=== PATIENT | female | born 1940 | race Hispanic/Latino ===

== ENCOUNTER → 2017-10-20 | Outpatient (CLI) | payer OTHER ==
[~2017-10-20] MED LIST: AMLO5TAB2 PO; ASPI-1197 PO; ATOR20TA65 PO; CYAN100T PO; FERR236T3 PO; GLIP-220 PO; LABE300T PO; LISI1TAB9 PO; METF-527 PO; SITA100T12 PO; [UNRECOGNIZED DRUG - OTHER] PO
== END | disposition home or self-care (01) ==
LOC: RAH 10:27
PROVIDERS: ATTEND Internal Medicine Gastroenterology
DX: R10.9 Unspecified abdominal pain (principal); R14.0 Abdominal distension (gaseous); R11.2 Nausea with vomiting, unspecified
CPT/HCPCS: 78264; A9541

== ENCOUNTER 2017-10-27 08:27 | Day surgery (SDC) | payer OTHER ==
[~2017-10-27] VITALS: Ht 149.9 cm; Wt 75.0 kg
[~2017-10-27 08:27] MED LIST changes: -CYAN100T PO; -FERR236T3 PO; +SODIUM CHLORIDE 0.9% 1000ML 1,000 ML IV ONE; -[UNRECOGNIZED DRUG - OTHER] PO
[2017-10-27 08:48] VITALS: BP 194/88
[2017-10-27] MEDS ORDERED: CYAN100T PO (09:40)
[2017-10-27] MEDS ORDERED: FERR236T3 PO (09:40)
[2017-10-27] MEDS ORDERED: [UNRECOGNIZED DRUG - OTHER] PO (09:40)
[2017-10-27] MEDS ORDERED: PROPOFOL 10 MG/ML 20ML VIAL IV ONE ×2 (10:18)
[2017-10-27 10:35] VITALS: BP 143/47
== END 2017-10-27 11:12 | disposition home or self-care (01) ==
LOC: ENDO 08:27 → DAH 08:27 → ENDO 11:12
PROVIDERS: ATTEND Internal Medicine Gastroenterology
DX: D50.9 Iron deficiency anemia, unspecified (principal); K21.9 Gastro-esophageal reflux disease without esophagitis; G47.33 Obstructive sleep apnea (adult) (pediatric); E11.9 Type 2 diabetes mellitus without complications; I10 Essential (primary) hypertension; E78.5 Hyperlipidemia, unspecified; Z79.84 Long term (current) use of oral hypoglycemic drugs; Z79.899 Other long term (current) drug therapy; Z90.710 Acquired absence of both cervix and uterus
CPT/HCPCS: 45378; 82948 ×2; 93005; A4606; J2704 ×2; J7030

== ENCOUNTER → 2018-07-03 | Outpatient (CLI) | payer OTHER ==
[~2018-07-03] MED LIST changes: -AMLO5TAB2 PO; +AMLO5TAB7 PO; +CYAN100T PO; +FERR236T3 PO; -LABE300T PO; +LABE300T2 PO; -SODIUM CHLORIDE 0.9% 1000ML 1,000 ML IV ONE; +[UNRECOGNIZED DRUG - OTHER] PO
== END | disposition home or self-care (01) ==
LOC: RAH 10:34
PROVIDERS: ATTEND Internal Medicine
DX: M25.561 Pain in right knee (principal)
CPT/HCPCS: 73562

== ENCOUNTER 2018-07-22 03:43 | Emergency (ER) | payer OTHER ==
[2018-07-22] MEDS ORDERED: SODIUM CHLORIDE 0.9% 1000ML 1,000 ML IV ONE (04:00)
[2018-07-22 04:16] LABS: EOSINOPHILS % (AUTO) 1.9 % (0.0-8.0); LYMPHOCYTES % (AUTO) 16.6 % (21.0-51.0); MEAN CORPUSCULAR HEMOGLOBIN 28.9 pg (27.0-33.0); MEAN CORPUSCULAR HGB CONC 33.1 g/dL (32.0-36.0); MEAN CORPUSCULAR VOLUME 87.5 fL (79-99); MONOCYTES % (AUTO) 6.4 % (3.0-13.0); NEUTROPHILS % (AUTO) 74.1 % (40.0-77.0); PLATELET COUNT (AUTO) 314 K/uL (130-400); RED BLOOD CELL COUNT(AUTO) 3.89 MIL/uL (4.00-5.50); RED CELL DISTRIBUTION WIDTH 14.2 % (11.0-15.5); WHITE BLOOD COUNT (AUTO) 13.9 K/uL (4.8-10.8)
[2018-07-22 04:30] LABS: CREATININE 0.9 mg/dL (0.5-1.5); POTASSIUM 3.3 mmol/L (3.5-5.1)
[2018-07-22 04:36] LABS: ALBUMIN 3.3 g/dL (3.5-5.0); BILIRUBIN,TOTAL 0.3 mg/dL (0.2-1.0); TOTAL PROTEIN, SERUM 6.5 g/dL (6.0-8.3)
[2018-07-22 04:39] LABS: INR 0.89 (0.85-1.15); PARTIAL THROMBOPLASTIN TIME 24.7 SEC (26.3-35.5); PROTHROMBIN TIME 9.4 SEC (9.6-11.6)
[2018-07-22] MEDS ORDERED: POTASSIUM BICARB/CIT AC 25 MEQ TABLET.EFF ONE (05:00)
== END 2018-07-22 05:32 | disposition home or self-care (01) ==
LOC: EDH 03:43
DX: E11.649 Type 2 diabetes mellitus with hypoglycemia without coma (principal); E78.5 Hyperlipidemia, unspecified; I11.0 Hypertensive heart disease with heart failure; I50.9 Heart failure, unspecified; Z79.4 Long term (current) use of insulin
CPT/HCPCS: 36415; 80053; 82948 ×2; 83735; 84484; 85025; 85610; 85730; 93005; 96360; 99285; J7030

== ENCOUNTER → 2018-12-26 | Outpatient (CLI) | payer OTHER ==
[~2018-12-26] MED LIST changes: -AMLO5TAB7 PO; +AMLO5TAB9 PO; -CYAN100T PO; +CYAN100T3 PO; -GLIP-220 PO; +GLIP10TA19 PO
== END | disposition home or self-care (01) ==
LOC: RAH 11:17
PROVIDERS: ATTEND Internal Medicine
DX: M25.571 Pain in right ankle and joints of right foot (principal)
CPT/HCPCS: 73610; 73630

== ENCOUNTER → 2019-06-13 | Outpatient (CLI) | payer OTHER ==
[~2019-06-13] MED LIST changes: +LISI1TAB32 PO; -LISI1TAB9 PO
== END | disposition home or self-care (01) ==
LOC: RAH 13:22
PROVIDERS: ATTEND Internal Medicine
DX: E04.2 Nontoxic multinodular goiter (principal); R09.89 Other specified symptoms and signs involving the circulatory and respiratory systems
CPT/HCPCS: 93880

== ENCOUNTER → 2019-08-30 | Outpatient (CLI) | payer OTHER | END | disposition home or self-care (01) | LOC: SHCH 13:49 | PROVIDERS: ATTEND Internal Medicine Cardiovascular Disease | DX: I87.2 Venous insufficiency (chronic) (peripheral) (principal) | CPT/HCPCS: 93970 ==

== ENCOUNTER 2019-09-08 05:10 | Observation (INO) | payer OTHER ==
[~2019-09-08] VITALS: Ht 152.4 cm; Wt 85.7 kg
[2019-09-08 05:39] LABS: BASOPHILS % (AUTO) 0.6 % (0.0-5.0); EOSINOPHILS % (AUTO) 3.2 % (0.0-8.0); HEMATOCRIT 31.2 % (36-48); LYMPHOCYTES % (AUTO) 20.2 % (21.0-51.0); MEAN CORPUSCULAR HEMOGLOBIN 27.1 pg (27.0-33.0); MEAN CORPUSCULAR HGB CONC 31.1 g/dL (32.0-36.0); MEAN CORPUSCULAR VOLUME 87.2 fL (79-99); MONOCYTES % (AUTO) 9.1 % (3.0-13.0); NEUTROPHILS % (AUTO) 66.4 % (40.0-77.0); PLATELET COUNT (AUTO) 276 K/uL (130-400); RED BLOOD CELL COUNT(AUTO) 3.58 MIL/uL (4.00-5.50); RED CELL DISTRIBUTION WIDTH 14.6 % (11.0-15.5); WHITE BLOOD COUNT (AUTO) 9.5 K/uL (4.8-10.8)
[2019-09-08 05:48] LABS: CREATININE 1.3 mg/dL (0.5-1.5); POTASSIUM 3.2 mmol/L (3.5-5.1)
[2019-09-08 05:52] LABS: ALBUMIN 3.4 g/dL (3.5-5.0); BILIRUBIN,TOTAL 0.3 mg/dL (0.2-1.0); TOTAL PROTEIN, SERUM 7.2 g/dL (6.0-8.3)
[2019-09-08 06:00] LABS: APPEARANCE,URINE Clear (CLEAR); BILIRUBIN,URINE Negative (NEGATIVE); COLOR,URINE Yellow (YELLOW); GLUCOSE, URINE (UA) Negative (NEGATIVE); KETONES,URINE Negative (NEGATIVE); LEUKOCYTE ESTERASE ,URINE Trace (NEGATIVE); NITRATE,URINE Negative (NEGATIVE); OCCULT BLOOD,URINE Negative (NEGATIVE); PH,URINE 6.5 (5.0-8.0); PROTEIN,URINE 300 mg/dL (NEGATIVE); UROBILINOGEN,URINE 0.2 mg/dL (0.2-1.0)
[2019-09-08 06:04] LABS: BACTERIA,URINE None Seen /HPF (None Seen); MUCUS,URINE None Seen LPF (None Seen); RBC,URINE None Seen /HPF (0-1); SQUAMOUS EPITHELIAL CELL,UR None Seen /HPF (0-2); WBC,URINE 0-1 /HPF (0-1)
[2019-09-08] MEDS ORDERED: DEXTROSE 5 % AND 0.9 % NACL 1,000 ML IV SCH (07:30)
[2019-09-08] MEDS ORDERED: DIPHENHYDRAMINE HCL 25 MG CAPSULE PO PRN (07:30)
[2019-09-08] MEDS ORDERED: GUAIFENESIN-DM 200/20 MG 10 ML PO PRN (07:30)
[2019-09-08] MEDS ORDERED: ACETAMINOPHEN 325 MG TAB PO PRN ×2 (07:30)
[2019-09-08] MEDS ORDERED: DiphenhydrAMINE HCL 50 MG/ML VIAL IV PRN (07:30)
[2019-09-08] MEDS ORDERED: LACTULOSE 20 GM/30 ML UDCUP PO PRN (07:30)
[2019-09-08] MEDS ORDERED: MAG HYDROX/AL HYDROX/SIMETH ES 30 ML SUSP UDCUP PO PRN (07:30)
[2019-09-08] MEDS ORDERED: ONDANSETRON HCL 4 MG/2 ML VIAL IV PRN (07:30)
[2019-09-08] MEDS ORDERED: NITROGLYCERIN 0.4 MG SL TAB SL PRN (07:30)
[2019-09-08 07:35] LABS: HEMOGLOBIN A1C 9.5 % (4.0-6.0)
[2019-09-08 07:47] LABS: INR 0.89 (0.85-1.15); PARTIAL THROMBOPLASTIN TIME 27.3 SEC (26.3-35.5); PROTHROMBIN TIME 9.4 SEC (9.6-11.6)
[2019-09-08] MEDS ORDERED: SODIUM CHLORIDE 0.9% 1000ML 1,000 ML IV SCH (08:15)
[2019-09-08] MEDS ORDERED: POTASSIUM CHLORIDE 20 MEQ ERTAB PO ONE (08:16)
[2019-09-08] MEDS ORDERED: HEPARIN SODIUM 5000UNIT/ML 1ML VIAL ONE (08:16)
[2019-09-08] MEDS ORDERED: FAMOTIDINE/PF 20 MG/2 ML VIAL IV ONE (08:17)
[2019-09-08] MEDS ORDERED: SODIUM CHLORIDE 0.9% 1000ML 1,000 ML IV ONE (08:17)
[2019-09-08] MEDS: POTASSIUM CHLORIDE 20 MEQ ERTAB PO SCH ×2 (09:00→21:54)
[2019-09-08] MEDS ORDERED: FAMOTIDINE 20MG TAB 20 MG TAB PO SCH (09:00)
[2019-09-08] MEDS: HEPARIN SODIUM 5000UNIT/ML 1ML VIAL SQ SCH ×2 (09:00→22:04)
[2019-09-08 09:50] VITALS: BP 148/73
[2019-09-08] MEDS ORDERED: BRIM5DRO4 OP (10:53)
[2019-09-08] MEDS ORDERED: LATA2.5D2 OP (10:53)
[2019-09-08] MEDS ORDERED: LISI1TAB32 PO (10:53)
[2019-09-08] MEDS ORDERED: LABE300T2 PO (10:53)
[2019-09-08] MEDS ORDERED: ATOR40TA69 PO (10:53)
[2019-09-08] MEDS ORDERED: AMLO5TAB9 PO (10:53)
[2019-09-08] MEDS ORDERED: PIOG15TA66 PO (10:53)
[2019-09-08] MEDS ORDERED: AMLO2.5T4 PO (10:53)
[2019-09-08] MEDS ORDERED: DULA1.5P SQ (15:23)
[2019-09-08] MEDS ORDERED: INSLAN SQ (15:23)
[2019-09-08] MEDS ORDERED: INSU100I15 SQ (15:23)
[2019-09-08 16:04] VITALS: BP 162/59
[2019-09-08] MEDS: INSULIN HUMULIN R 100 UNIT/ML 3ML SQ SCH ×2 (17:24→22:05)
[2019-09-08] MEDS: SODIUM CHLORIDE 0.9% 1000ML 1,000 ML IV SCH (19:00)
--- NOTE | 2019-09-08 19:35 | NUR ---
PM Assessment Received pt with family at the bedside, NS at 50cc/hr infusing well, routine assessment done, plan of care discuss made aware that we will continue to monitor pt's blood sugar Q 2 hours as order but reported only to cover AC/HS reading. Pt also made aware at this time all her blood sugars medication is on hold. Pt currently denies discomfort.
[2019-09-08 20:00] VITALS: BP 160/74
[2019-09-08] MEDS ORDERED: ATORVASTATIN CALCIUM 40 MG TABLET PO SCH (21:00)
[2019-09-08] MEDS: LABETALOL HCL 100 MG TABLET PO SCH (21:55)
[2019-09-09] VITALS: BP 139/62
[2019-09-09 04:00] VITALS: BP 145/64
[2019-09-09 06:21] LABS: BASOPHILS % (AUTO) 0.6 % (0.0-5.0); EOSINOPHILS % (AUTO) 1.9 % (0.0-8.0); HEMATOCRIT 31.6 % (36-48); LYMPHOCYTES % (AUTO) 29.3 % (21.0-51.0); MEAN CORPUSCULAR HEMOGLOBIN 26.9 pg (27.0-33.0); MEAN CORPUSCULAR HGB CONC 30.4 g/dL (32.0-36.0); MEAN CORPUSCULAR VOLUME 88.5 fL (79-99); PLATELET COUNT (AUTO) 287 K/uL (130-400); RED BLOOD CELL COUNT(AUTO) 3.57 MIL/uL (4.00-5.50); WHITE BLOOD COUNT (AUTO) 8.5 K/uL (4.8-10.8)
[2019-09-09] MEDS: INSULIN HUMULIN R 100 UNIT/ML 3ML SQ SCH (06:34)
[2019-09-09] MEDS: SODIUM CHLORIDE 0.9% 1000ML 1,000 ML IV SCH (06:42)
[2019-09-09 06:49] LABS: ALBUMIN 3.1 g/dL (3.5-5.0); BILIRUBIN,TOTAL 0.4 mg/dL (0.2-1.0); CREATININE 1.2 mg/dL (0.5-1.5); TOTAL PROTEIN, SERUM 6.7 g/dL (6.0-8.3)
[2019-09-09 08:13] VITALS: BP 163/73
[2019-09-09] MEDS: LABETALOL HCL 100 MG TABLET PO SCH (08:58)
[2019-09-09] MEDS: POTASSIUM CHLORIDE 20 MEQ ERTAB PO SCH (08:59)
[2019-09-09] MEDS ORDERED: BRIMONIDINE TARTRATE 0.2% 5 ML BOTTLE OP SCH (09:00)
[2019-09-09] MEDS ORDERED: LISINOPRIL 10 MG TABLET PO SCH (09:00)
[2019-09-09] MEDS ORDERED: PIOGLITAZONE HCL 15 MG TAB PO SCH (09:00)
[2019-09-09] MEDS ORDERED: AMLODIPINE BESYLATE 5 MG TAB PO SCH (09:00)
[2019-09-09] MEDS ORDERED: FAMOTIDINE 20MG TAB 20 MG TAB PO SCH (09:00)
[2019-09-09] MEDS ORDERED: AMLODIPINE BESYLATE 2.5 MG TAB PO SCH (09:00)
[2019-09-09] MEDS ORDERED: HYDROCHLOROTHIAZIDE 25 MG TABLET PO SCH (09:00)
[2019-09-09] MEDS ORDERED: LATANOPROST 2.5 ML DROPS OP SCH (09:00)
[2019-09-09] MEDS: HEPARIN SODIUM 5000UNIT/ML 1ML VIAL SQ SCH (09:03)
[2019-09-09] MEDS ORDERED: METF500S7 PO (10:22)
[2019-09-09] MEDS ORDERED: PIOG15TA66 PO (10:22)
[2019-09-09] MEDS ORDERED: METF500T PO (18:10)
== END 2019-09-09 11:30 | disposition home or self-care (01) ==
LOC: EDH 05:10 → EDHIP 07:16 → INTOOBSV 07:16 → 3BH 09:52
PROVIDERS: ADMIT Family Medicine; ATTEND Family Medicine
DX: E11.649 Type 2 diabetes mellitus with hypoglycemia without coma (principal); T38.3X5A Adverse effect of insulin and oral hypoglycemic [antidiabetic] drugs, initial encounter; I11.0 Hypertensive heart disease with heart failure; E11.65 Type 2 diabetes mellitus with hyperglycemia; I50.9 Heart failure, unspecified; E78.5 Hyperlipidemia, unspecified; J44.9 Chronic obstructive pulmonary disease, unspecified; E87.6 Hypokalemia; Z79.4 Long term (current) use of insulin
CPT/HCPCS: 36415 ×2; 80053 ×2; 81001; 82948 ×11; 83036; 84443; 84484; 85025 ×2; 85610; 85730; 93005; 96360; 96361; 96372 ×2; 99284; G0378 ×28; J1644 ×3; J1815 ×2; J3490; J7030 ×2; 96365

== ENCOUNTER → 2019-10-18 | Outpatient (CLI) | payer OTHER ==
[~2019-10-18] MED LIST changes: +AMLO2.5T4 PO; -ASPI-1197 PO; -ATOR20TA65 PO; +ATOR40TA69 PO; +BRIM5DRO4 OP; -CYAN100T3 PO; +DULA1.5P SQ; -FERR236T3 PO; -GLIP10TA19 PO; +LATA2.5D2 OP; -METF-527 PO; +METF500S7 PO; +METF500T PO; +PIOG15TA66 PO; -SITA100T12 PO; -[UNRECOGNIZED DRUG - OTHER] PO
== END | disposition home or self-care (01) ==
LOC: RAH 11:52
PROVIDERS: ATTEND Internal Medicine
DX: S82.831A Other fracture of upper and lower end of right fibula, initial encounter for closed fracture (principal); M20.11 Hallux valgus (acquired), right foot; X58.XXXA Exposure to other specified factors, initial encounter; Y93.89 Activity, other specified; Y92.89 Other specified places as the place of occurrence of the external cause; Y99.8 Other external cause status
CPT/HCPCS: 73590; 73610; 73630

== ENCOUNTER → 2020-05-02 | Outpatient (CLI) | payer OTHER | END | disposition home or self-care (01) | LOC: RAH 09:51 | PROVIDERS: ATTEND Internal Medicine | DX: I08.0 Rheumatic disorders of both mitral and aortic valves (principal); I11.0 Hypertensive heart disease with heart failure; I50.9 Heart failure, unspecified; I77.9 Disorder of arteries and arterioles, unspecified; E66.9 Obesity, unspecified; E78.5 Hyperlipidemia, unspecified; E11.9 Type 2 diabetes mellitus without complications | CPT/HCPCS: 93306; 93356 ==

== ENCOUNTER → 2020-10-16 | Outpatient (CLI) | payer OTHER ==
[~2020-10-16] MED LIST changes: +AMLO-257 PO; -AMLO5TAB9 PO; +LATA2.5D14 OP; -LATA2.5D2 OP
== END | disposition home or self-care (01) ==
LOC: SHCH 08:53
PROVIDERS: ATTEND Internal Medicine Cardiovascular Disease
DX: K21.9 Gastro-esophageal reflux disease without esophagitis (principal); I87.2 Venous insufficiency (chronic) (peripheral); R07.9 Chest pain, unspecified; R06.09 Other forms of dyspnea; I20.9 Angina pectoris, unspecified; R60.9 Edema, unspecified
CPT/HCPCS: 93970

== ENCOUNTER 2020-10-17 18:44 | Inpatient (IN) | payer OTHER ==
[~2020-10-17] VITALS: Ht 160 cm; Wt 80.4 kg
[~2020-10-17 18:44] MED LIST changes: -LISI1TAB32 PO; +LISI1TAB49 PO
[2020-10-17] MEDS ORDERED: HYDRALAZINE 20MG/ML VIAL ONE (19:15)
[2020-10-17 19:18] LABS: BASOPHILS % (AUTO) 0.5 % (0.0-5.0); EOSINOPHILS % (AUTO) 0.4 % (0.0-8.0); HEMATOCRIT 29.8 % (36-48); LYMPHOCYTES % (AUTO) 10.2 % (21.0-51.0); MEAN CORPUSCULAR HEMOGLOBIN 26.7 pg (27.0-33.0); MEAN CORPUSCULAR HGB CONC 30.9 g/dL (32.0-36.0); MEAN CORPUSCULAR VOLUME 86.6 fL (79-99); MONOCYTES % (AUTO) 6.1 % (3.0-13.0); NEUTROPHILS % (AUTO) 82.2 % (40.0-77.0); PLATELET COUNT (AUTO) 255 K/uL (130-400); RED BLOOD CELL COUNT(AUTO) 3.44 MIL/uL (4.00-5.50); RED CELL DISTRIBUTION WIDTH 15.4 % (11.0-15.5); WHITE BLOOD COUNT (AUTO) 10.9 K/uL (4.8-10.8)
[2020-10-17] MEDS ORDERED: DEXAMETHASONE SOD PHOSPHATE 10MG/ML 1ML VIAL ONE (19:26)
[2020-10-17] MEDS ORDERED: CEFTRIAXONE 1G VIAL ONE (19:26)
[2020-10-17 19:29] LABS: CREATININE 1.5 mg/dL (0.5-1.5); POTASSIUM 3.6 mmol/L (3.5-5.1)
[2020-10-17 19:30] LABS: ABG BASE EXCESS 2.6 mmol/L (-2.0-3.0); ABG HCO3 28.1 mmol/L (21.0-28.0); ABG OXYGEN SATURATION 98.8 % (95.0-99.0); ABG PCO2 47 mmHg (32-45)
[2020-10-17 19:31] LABS: PROTHROMBIN TIME 10.9 SEC (9.6-11.6)
[2020-10-17 19:33] LABS: PARTIAL THROMBOPLASTIN TIME 23.6 SEC (26.3-35.5)
[2020-10-17 19:34] LABS: BILIRUBIN,TOTAL 0.4 mg/dL (0.2-1.0)
[2020-10-17] MEDS ORDERED: MAG/ALUM/SIMETH 30 ML UDCUP PO PRN (23:00)
[2020-10-17] MEDS ORDERED: GUAIFENESIN-DM 200/20 MG 10 ML PO PRN (23:00)
[2020-10-17] MEDS: AZITHROMYCIN 500MG+NS 250ML 250 ML IV SCH (23:00)
[2020-10-17] MEDS ORDERED: ACETAMINOPHEN 325 MG TAB PO PRN ×2 (23:00)
[2020-10-17] MEDS ORDERED: DiphenhydrAMINE HCL 50 MG/ML VIAL IV PRN (23:00)
[2020-10-17] MEDS ORDERED: ONDANSETRON 4MG INJ IV PRN (23:00)
[2020-10-17] MEDS ORDERED: LACTATED RINGERS 1000ML 1,000 ML IV SCH (23:00)
[2020-10-17] MEDS ORDERED: DIPHENHYDRAMINE HCL 25 MG CAPSULE PO PRN (23:00)
[2020-10-17] MEDS ORDERED: LACTULOSE 20 GM/30 ML UDCUP PO PRN (23:00)
[2020-10-17] MEDS ORDERED: ALBUTEROL 0.083% 2.5 MG/3 ML INH IH PRN (23:00)
[2020-10-17] MEDS ORDERED: NITROGLYCERIN 0.4 MG SL TAB SL PRN (23:00)
[2020-10-17 23:51] LABS: CRP QUANTITATIVE 50.8 mg/L (0.00-9.0)
[2020-10-18] MEDS ORDERED: AZITHROMYCIN 500MG+NS 250ML 250 ML IV ONE (00:01)
[2020-10-18] MEDS ORDERED: LACTATED RINGERS 1000ML 1,000 ML IV ONE (00:02)
[2020-10-18 00:48] LABS: APPEARANCE,URINE Clear (CLEAR); BILIRUBIN,URINE Negative (NEGATIVE); COLOR,URINE Yellow (YELLOW); GLUCOSE, URINE (UA) 500 mg/dL (NEGATIVE); KETONES,URINE Trace mg/dL (NEGATIVE); LEUKOCYTE ESTERASE ,URINE Negative (NEGATIVE); NITRATE,URINE Negative (NEGATIVE); OCCULT BLOOD,URINE Negative (NEGATIVE); PH,URINE 6.5 (5.0-8.0); PROTEIN,URINE >=1000 mg/dL (NEGATIVE); UROBILINOGEN,URINE 0.2 mg/dL (0.2-1.0)
[2020-10-18 01:06] LABS: BACTERIA,URINE None Seen /HPF (None Seen); MUCUS,URINE Moderate LPF (None Seen); RBC,URINE None Seen /HPF (0-1); SQUAMOUS EPITHELIAL CELL,UR Rare /HPF (0-2)
[2020-10-18] MEDS: FUROSEMIDE 20MG VIAL IV SCH ×2 (03:00→15:00)
[2020-10-18] MEDS ORDERED: FUROSEMIDE 20MG VIAL ONE ×2 (03:38→18:24)
[2020-10-18 06:30] LABS: BASOPHILS % (AUTO) 0.1 % (0.0-5.0); HEMATOCRIT 30.4 % (36-48); LYMPHOCYTES % (AUTO) 8.3 % (21.0-51.0); MEAN CORPUSCULAR HEMOGLOBIN 26.3 pg (27.0-33.0); MEAN CORPUSCULAR HGB CONC 30.6 g/dL (32.0-36.0); MEAN CORPUSCULAR VOLUME 85.9 fL (79-99); MONOCYTES % (AUTO) 1.2 % (3.0-13.0); NEUTROPHILS % (AUTO) 89.8 % (40.0-77.0); PLATELET COUNT (AUTO) 277 K/uL (130-400); RED BLOOD CELL COUNT(AUTO) 3.54 MIL/uL (4.00-5.50); RED CELL DISTRIBUTION WIDTH 15.5 % (11.0-15.5); WHITE BLOOD COUNT (AUTO) 8.9 K/uL (4.8-10.8)
[2020-10-18 06:46] LABS: BILIRUBIN,TOTAL 0.4 mg/dL (0.2-1.0); CREATININE 1.6 mg/dL (0.5-1.5); CRP QUANTITATIVE 70.1 mg/L (0.00-9.0); POTASSIUM 4.1 mmol/L (3.5-5.1); TOTAL PROTEIN, SERUM 7.2 g/dL (6.0-8.3)
[2020-10-18] MEDS ORDERED: CLOPIDOGREL 75MG TAB ONE (07:31)
[2020-10-18] MEDS ORDERED: LABETALOL HCL 100 MG TABLET ONE (07:31)
[2020-10-18] MEDS ORDERED: LABETALOL HCL 200 MG TABLET ONE (07:31)
[2020-10-18] MEDS ORDERED: ENOXAPARIN SODIUM 30 MG/0.3 ML SQ ONE (07:32)
[2020-10-18] MEDS ORDERED: FAMOTIDINE 20MG VIAL IV ONE (07:32)
[2020-10-18] MEDS: ENOXAPARIN SODIUM 30 MG/0.3 ML SQ SCH (09:00)
[2020-10-18] MEDS ORDERED: FAMOTIDINE 20MG VIAL IV SCH (09:00)
[2020-10-18] MEDS: LABETALOL HCL 100 MG TABLET PO SCH ×2 (09:00→21:00)
[2020-10-18] MEDS: CLOPIDOGREL 75MG TAB PO SCH (09:00)
[2020-10-18] MEDS: LISINOPRIL 10 MG PO SCH (09:00)
[2020-10-18] MEDS: HYDROCHLOROTHIAZIDE 12.5 MG PO SCH (09:00)
[2020-10-18] MEDS ORDERED: LABETALOL 20MG SYG IV SCH (15:30)
[2020-10-18] MEDS ORDERED: LABETALOL 20MG SYG IV ONE (16:22)
[2020-10-18] MEDS: INSULIN R PO SS1 SQ SCH ×2 (16:30→21:00)
[2020-10-18] MEDS ORDERED: INSULIN HUMULIN R 100 UNIT/ML 3ML ONE ×2 (18:24→21:00)
[2020-10-18] MEDS: CEFTRIAXONE 1G VIAL IVP SCH (21:00)
[2020-10-18] MEDS: AZITHROMYCIN 500MG+NS 250ML 250 ML IV SCH (23:00)
[2020-10-19] MEDS ORDERED: LABETALOL HCL 100 MG TABLET ONE (01:27)
[2020-10-19] MEDS: FUROSEMIDE 20MG VIAL IV SCH ×2 (03:00→15:00)
[2020-10-19 04:54] LABS: BASOPHILS % (AUTO) 0.5 % (0.0-5.0); EOSINOPHILS % (AUTO) 1.6 % (0.0-8.0); LYMPHOCYTES % (AUTO) 20.9 % (21.0-51.0); MEAN CORPUSCULAR HEMOGLOBIN 26.8 pg (27.0-33.0); MEAN CORPUSCULAR HGB CONC 31.2 g/dL (32.0-36.0); MEAN CORPUSCULAR VOLUME 85.9 fL (79-99); MONOCYTES % (AUTO) 11.2 % (3.0-13.0); NEUTROPHILS % (AUTO) 65.4 % (40.0-77.0); PLATELET COUNT (AUTO) 253 K/uL (130-400); RED BLOOD CELL COUNT(AUTO) 2.91 MIL/uL (4.00-5.50); RED CELL DISTRIBUTION WIDTH 15.7 % (11.0-15.5); WHITE BLOOD COUNT (AUTO) 8.5 K/uL (4.8-10.8)
[2020-10-19 05:12] LABS: ALBUMIN 2.6 g/dL (3.5-5.0); BILIRUBIN,TOTAL 0.2 mg/dL (0.2-1.0); CRP QUANTITATIVE 57.4 mg/L (0.00-9.0); POTASSIUM 3.9 mmol/L (3.5-5.1); TOTAL PROTEIN, SERUM 6.1 g/dL (6.0-8.3)
[2020-10-19 05:20] LABS: B-TYPE NATRIURETIC PEPTIDE 683 pg/mL (0-100)
[2020-10-19] MEDS: INSULIN R PO SS1 SQ SCH ×4 (07:30→21:00)
[2020-10-19] MEDS ORDERED: CLOPIDOGREL 75MG TAB ONE (08:43)
[2020-10-19] MEDS ORDERED: ENOXAPARIN SODIUM 30 MG/0.3 ML SQ ONE (08:43)
[2020-10-19] MEDS ORDERED: LISINOPRIL 20 MG TABLET ONE (08:44)
[2020-10-19] MEDS ORDERED: HYDROCHLOROTHIAZIDE 25 MG TABLET ONE (08:44)
[2020-10-19] MEDS ORDERED: FAMOTIDINE 20MG VIAL IV ONE ×2 (08:44→20:45)
[2020-10-19] MEDS ORDERED: INSULIN HUMULIN R 100 UNIT/ML 3ML ONE ×3 (08:45→20:45)
[2020-10-19] MEDS: LISINOPRIL 10 MG PO SCH (09:00)
[2020-10-19] MEDS: ENOXAPARIN SODIUM 30 MG/0.3 ML SQ SCH (09:00)
[2020-10-19] MEDS: LABETALOL HCL 100 MG TABLET PO SCH ×2 (09:00→21:00)
[2020-10-19] MEDS: HYDROCHLOROTHIAZIDE 12.5 MG PO SCH (09:00)
[2020-10-19] MEDS: CLOPIDOGREL 75MG TAB PO SCH (09:00)
[2020-10-19 10:43] LABS: % IRON SATURATION 11.5 % (22-44)
[2020-10-19 14:01] LABS: BASOPHILS % (AUTO) 0.5 % (0.0-5.0); EOSINOPHILS % (AUTO) 3.7 % (0.0-8.0); HEMATOCRIT 26.2 % (36-48); LYMPHOCYTES % (AUTO) 21.8 % (21.0-51.0); MEAN CORPUSCULAR HEMOGLOBIN 27.2 pg (27.0-33.0); MEAN CORPUSCULAR HGB CONC 30.9 g/dL (32.0-36.0); MEAN CORPUSCULAR VOLUME 87.9 fL (79-99); MONOCYTES % (AUTO) 7.9 % (3.0-13.0); NEUTROPHILS % (AUTO) 65.9 % (40.0-77.0); PLATELET COUNT (AUTO) 291 K/uL (130-400); RED BLOOD CELL COUNT(AUTO) 2.98 MIL/uL (4.00-5.50); RED CELL DISTRIBUTION WIDTH 15.9 % (11.0-15.5)
[2020-10-19] MEDS ORDERED: FUROSEMIDE 20MG VIAL ONE (15:34)
[2020-10-19] MEDS: AMLODIPINE 5 MG TAB PO SCH (16:45)
[2020-10-19] MEDS ORDERED: AMLODIPINE 5 MG TAB ONE (17:03)
[2020-10-19 17:27] LABS: PROTEIN,URINE RANDOM 683.8 mg/dL (0-11.9)
[2020-10-19] MEDS ORDERED: AZITHROMYCIN 500MG+NS 250ML 250 ML IV ONE (20:44)
[2020-10-19] MEDS ORDERED: CEFTRIAXONE 1G VIAL ONE (20:44)
[2020-10-19] MEDS ORDERED: 0.9%NACL 50ML 50 ML IV ONE (20:46)
[2020-10-19] MEDS: CEFTRIAXONE 1G VIAL IVP SCH (21:00)
[2020-10-19] MEDS: AZITHROMYCIN 500MG+NS 250ML 250 ML IV SCH (23:00)
[2020-10-20] MEDS ORDERED: FUROSEMIDE 20MG VIAL ONE (02:53)
[2020-10-20] MEDS: FUROSEMIDE 20MG VIAL IV SCH ×2 (03:00→16:12)
[2020-10-20 03:20] LABS: BASOPHILS % (AUTO) 0.5 % (0.0-5.0); HEMATOCRIT 26.2 % (36-48); LYMPHOCYTES % (AUTO) 27.3 % (21.0-51.0); MEAN CORPUSCULAR HEMOGLOBIN 27.1 pg (27.0-33.0); MEAN CORPUSCULAR HGB CONC 30.9 g/dL (32.0-36.0); MEAN CORPUSCULAR VOLUME 87.6 fL (79-99); MONOCYTES % (AUTO) 10.5 % (3.0-13.0); NEUTROPHILS % (AUTO) 55.6 % (40.0-77.0); PLATELET COUNT (AUTO) 295 K/uL (130-400); RED BLOOD CELL COUNT(AUTO) 2.99 MIL/uL (4.00-5.50); RED CELL DISTRIBUTION WIDTH 15.7 % (11.0-15.5); WHITE BLOOD COUNT (AUTO) 7.5 K/uL (4.8-10.8)
[2020-10-20 03:39] LABS: ALBUMIN 2.7 g/dL (3.5-5.0); BILIRUBIN,TOTAL 0.2 mg/dL (0.2-1.0); CREATININE 1.8 mg/dL (0.5-1.5); CRP QUANTITATIVE 39.9 mg/L (0.00-9.0); POTASSIUM 3.6 mmol/L (3.5-5.1); TOTAL PROTEIN, SERUM 6.2 g/dL (6.0-8.3)
[2020-10-20] MEDS: INSULIN R PO SS1 SQ SCH ×4 (07:30→21:00)
[2020-10-20] MEDS ORDERED: CLOPIDOGREL 75MG TAB ONE (08:46)
[2020-10-20] MEDS ORDERED: LABETALOL HCL 100 MG TABLET ONE (08:46)
[2020-10-20] MEDS ORDERED: ASPIRIN 81MG CHEW TAB ONE (08:46)
[2020-10-20] MEDS ORDERED: AMLODIPINE 5 MG TAB ONE (08:47)
[2020-10-20] MEDS ORDERED: ENOXAPARIN SODIUM 30 MG/0.3 ML SQ ONE (08:47)
[2020-10-20] MEDS: LISINOPRIL 10 MG PO SCH (09:00)
[2020-10-20] MEDS: HYDROCHLOROTHIAZIDE 12.5 MG PO SCH (09:00)
[2020-10-20] MEDS: LABETALOL HCL 100 MG TABLET PO SCH ×2 (09:00→22:46)
[2020-10-20] MEDS: AMLODIPINE 5 MG TAB PO SCH (09:00)
[2020-10-20] MEDS: ASPIRIN 81MG CHEW TAB PO SCH (09:00)
[2020-10-20] MEDS: ENOXAPARIN SODIUM 30 MG/0.3 ML SQ SCH (09:00)
[2020-10-20 10:15] VITALS: BP 195/72
[2020-10-20] MEDS ORDERED: INSULIN GLARGINE 100 UNITS/ML 10 ML VIAL SQ SCH (11:45)
[2020-10-20] MEDS ORDERED: CLOP75TA32 PO (14:28)
[2020-10-20] MEDS ORDERED: INSU100I15 SQ (14:28)
[2020-10-20] MEDS ORDERED: INSU100V37 SQ (14:28)
[2020-10-20 16:00] VITALS: BP 164/78
[2020-10-20 19:10] VITALS: BP 163/65
[2020-10-20] MEDS: CEFTRIAXONE 1G VIAL IVP SCH (22:45)
[2020-10-20] MEDS: ACETYLCYSTEINE 600 MG CAPSULE PO SCH (22:46)
[2020-10-20] MEDS: AZITHROMYCIN 500MG+NS 250ML 250 ML IV SCH (22:47)
[2020-10-20 23:55] VITALS: BP 146/58
[2020-10-21] VITALS (12 sets, daily range): BP systolic 159–208; BP diastolic 54–88
[2020-10-21] MEDS: FUROSEMIDE 20MG VIAL IV SCH ×2 (03:36→15:10)
[2020-10-21 05:43] LABS: HEMATOCRIT 28.9 % (36-48); MEAN CORPUSCULAR HEMOGLOBIN 26.5 pg (27.0-33.0); MEAN CORPUSCULAR HGB CONC 30.4 g/dL (32.0-36.0); RED BLOOD CELL COUNT(AUTO) 3.32 MIL/uL (4.00-5.50); RED CELL DISTRIBUTION WIDTH 15.1 % (11.0-15.5); WHITE BLOOD COUNT (AUTO) 7.6 K/uL (4.8-10.8)
[2020-10-21 05:59] LABS: ALBUMIN 2.8 g/dL (3.5-5.0); BILIRUBIN,TOTAL 0.3 mg/dL (0.2-1.0); CREATININE 1.6 mg/dL (0.5-1.5); MAGNESIUM 1.9 mg/dL (1.80-2.40); TOTAL PROTEIN, SERUM 6.5 g/dL (6.0-8.3)
[2020-10-21 06:01] LABS: % IRON SATURATION 8.9 % (22-44)
[2020-10-21] MEDS ORDERED: LIDOCAINE HCL-MPF 1% 2ML VIAL ONE (06:38)
[2020-10-21] MEDS ORDERED: POTASSIUM CHLORIDE 20 MEQ/100 ML BAG IV SCH (06:45)
[2020-10-21] MEDS ORDERED: LIDOCAINE HCL-MPF 1% 2ML VIAL IV SCH (06:45)
[2020-10-21] MEDS ORDERED: IOHEXOL-350 50ML VIAL IV ONE (07:16)
[2020-10-21] MEDS ORDERED: MIDAZOLAM HCL 1 MG/ML 2ML VIAL ONE (07:16)
[2020-10-21] MEDS ORDERED: BIVALIRUDIN 250 MG/VIAL IV ONE (07:16)
[2020-10-21] MEDS ORDERED: IOHEXOL 350 MG/ML 100ML INFUS..BTL IV ONE (07:16)
[2020-10-21] MEDS ORDERED: FENTANYL CITRATE PF 50 MCG/1 ML 2ML VIAL ONE (07:17)
[2020-10-21] MEDS ORDERED: LIDOCAINE HCL 400MG/20ML VIAL ONE (07:17)
[2020-10-21] MEDS: INSULIN R PO SS1 SQ SCH ×4 (07:30→22:06)
[2020-10-21] MEDS ORDERED: NITROGLYCERIN 2 MG VIAL IV ONE (08:14)
[2020-10-21] MEDS: ENOXAPARIN SODIUM 30 MG/0.3 ML SQ SCH (09:00)
[2020-10-21] MEDS: ASPIRIN 81MG CHEW TAB PO SCH (09:00)
[2020-10-21] MEDS ORDERED: LABETALOL 20MG VIAL IV ONE (09:35)
[2020-10-21] MEDS ORDERED: 0.9%NACL 1000ML 1,000 ML IV SCH (10:00)
[2020-10-21] MEDS ORDERED: NITROGLYCERIN 0.4 MG SL TAB SL PRN (10:00)
[2020-10-21] MEDS ORDERED: METOPROLOL TARTRATE 1 MG/ML 5ML VIAL IV PRN (10:00)
[2020-10-21] MEDS ORDERED: ASPIRIN 81MG CHEW TAB ONE (10:03)
[2020-10-21] MEDS ORDERED: TICAGRELOR 90 MG TABLET ONE (10:03)
[2020-10-21] MEDS: AMLODIPINE 5 MG TAB PO SCH (15:09)
[2020-10-21] MEDS: LABETALOL HCL 100 MG TABLET PO SCH ×2 (15:09→22:03)
[2020-10-21] MEDS: Vitamin B Complex/Vit C/Folic Acid PO SCH (15:09)
[2020-10-21] MEDS: LISINOPRIL 10 MG PO SCH (15:11)
[2020-10-21] MEDS: HYDROCHLOROTHIAZIDE 12.5 MG PO SCH (15:11)
[2020-10-21] MEDS ORDERED: POTASSIUM CHLORIDE 10% ELIXIR 20 MEQ/15 ML UDCUP PO SCH (16:45)
[2020-10-21] MEDS ORDERED: ATORVASTATIN 40 MG TABLET PO SCH (21:00)
[2020-10-21] MEDS: CEFTRIAXONE 1G VIAL IVP SCH (22:02)
[2020-10-21] MEDS: TICAGRELOR 90 MG TABLET PO SCH (22:03)
[2020-10-21] MEDS: ACETYLCYSTEINE 600 MG CAPSULE PO SCH (22:03)
[2020-10-21] MEDS: AZITHROMYCIN 500MG+NS 250ML 250 ML IV SCH (23:12)
[2020-10-22 00:05] VITALS: BP 170/71
[2020-10-22] MEDS: FUROSEMIDE 20MG VIAL IV SCH (03:06)
[2020-10-22 03:57] VITALS: BP 160/57
[2020-10-22 06:18] LABS: HEMATOCRIT 28.5 % (36-48); MEAN CORPUSCULAR HEMOGLOBIN 26.2 pg (27.0-33.0); MEAN CORPUSCULAR HGB CONC 30.9 g/dL (32.0-36.0); MEAN CORPUSCULAR VOLUME 84.8 fL (79-99); PLATELET COUNT (AUTO) 311 K/uL (130-400); RED BLOOD CELL COUNT(AUTO) 3.36 MIL/uL (4.00-5.50); RED CELL DISTRIBUTION WIDTH 15.3 % (11.0-15.5); WHITE BLOOD COUNT (AUTO) 6.7 K/uL (4.8-10.8)
[2020-10-22] MEDS: INSULIN R PO SS1 SQ SCH ×2 (06:41→12:04)
[2020-10-22 06:47] LABS: ALBUMIN 2.8 g/dL (3.5-5.0); BILIRUBIN,TOTAL 0.4 mg/dL (0.2-1.0); CREATININE 1.4 mg/dL (0.5-1.5); MAGNESIUM 1.8 mg/dL (1.80-2.40); PHOSPHORUS 3.2 mg/dL (2.5-4.9); TOTAL PROTEIN, SERUM 6.5 g/dL (6.0-8.3)
[2020-10-22 07:00] VITALS: BP 160/65
[2020-10-22] MEDS: Vitamin B Complex/Vit C/Folic Acid PO SCH (08:41)
[2020-10-22] MEDS: ASPIRIN 81MG CHEW TAB PO SCH (08:41)
[2020-10-22] MEDS: TICAGRELOR 90 MG TABLET PO SCH (08:41)
[2020-10-22] MEDS: AMLODIPINE 5 MG TAB PO SCH (08:42)
[2020-10-22] MEDS: LABETALOL HCL 100 MG TABLET PO SCH (08:42)
[2020-10-22] MEDS: ENOXAPARIN SODIUM 30 MG/0.3 ML SQ SCH (08:43)
[2020-10-22] MEDS: LISINOPRIL 10 MG PO SCH (09:00)
[2020-10-22] MEDS: HYDROCHLOROTHIAZIDE 12.5 MG PO SCH (09:00)
[2020-10-22 09:38] LABS: LYMPHOCYTES % (MANUAL) 19 % (22-44); MONOCYTES % (MANUAL) 9 % (2-9); SEGMENTED NEUTROPHILS % 72 % (40-70)
[2020-10-22 09:39] LABS: MAN.DIFF COMMENT-IMPRESSION MANUAL DIFFERENTIAL; PLATELET MORPHOLOGY COMMENT ADEQUATE
[2020-10-22] MEDS ORDERED: AMOX-426 PO (09:49)
[2020-10-22 11:30] VITALS: BP 142/58
[2020-10-22] MEDS ORDERED: KCL 20 MEQ ERTAB PO SCH (12:00)
[2020-10-22] MEDS ORDERED: HYDRALAZINE 25MG TABLET PO SCH (14:00)
[2020-10-22] MEDS ORDERED: CARVEDILOL 12.5 MG TABLET PO SCH (21:00)
[2020-10-23] MEDS ORDERED: FUROSEMIDE 40 MG TABLET PO SCH (09:00)
[2020-10-23] MEDS ORDERED: KCL 20 MEQ ERTAB PO SCH (09:00)
== END 2020-10-22 16:50 | disposition home or self-care (01) | DRG 246 ==
LOC: EDH 18:44 → EDHIP 22:50 → 3CH 10-20 10:07
PROVIDERS: ADMIT Family Medicine; ATTEND Family Medicine
PROC: 4A023N7 Measurement of Cardiac Sampling and Pressure, Left Heart, Percutaneous Approach (ICD-10-PCS; principal; 2020-10-21)
PROC: 027034Z Dilation of Coronary Artery, One Artery with Drug-eluting Intraluminal Device, Percutaneous Approach (ICD-10-PCS; 2020-10-21)
PROC: B211YZZ Fluoroscopy of Multiple Coronary Arteries using Other Contrast (ICD-10-PCS; 2020-10-21)
PROC: B418YZZ Fluoroscopy of Bilateral Renal Arteries using Other Contrast (ICD-10-PCS; 2020-10-21)
DX: I13.0 Hypertensive heart and chronic kidney disease with heart failure and stage 1 through stage 4 chronic kidney disease, or unspecified chronic kidney disease (principal); I50.43 Acute on chronic combined systolic (congestive) and diastolic (congestive) heart failure; J18.9 Pneumonia, unspecified organism; J96.00 Acute respiratory failure, unspecified whether with hypoxia or hypercapnia; E87.0 Hyperosmolality and hypernatremia; J44.0 Chronic obstructive pulmonary disease with (acute) lower respiratory infection; I25.110 Atherosclerotic heart disease of native coronary artery with unstable angina pectoris; N18.30 Chronic kidney disease, stage 3 unspecified; I16.0 Hypertensive urgency; E66.01 Morbid (severe) obesity due to excess calories; I87.2 Venous insufficiency (chronic) (peripheral); D63.1 Anemia in chronic kidney disease; E78.5 Hyperlipidemia, unspecified; E11.51 Type 2 diabetes mellitus with diabetic peripheral angiopathy without gangrene; E11.22 Type 2 diabetes mellitus with diabetic chronic kidney disease; E87.6 Hypokalemia; E04.0 Nontoxic diffuse goiter; Z20.822 Contact with and (suspected) exposure to COVID-19; E11.21 Type 2 diabetes mellitus with diabetic nephropathy; Z79.02 Long term (current) use of antithrombotics/antiplatelets; Z79.4 Long term (current) use of insulin; Z79.899 Other long term (current) drug therapy; Z82.0 Family history of epilepsy and other diseases of the nervous system; Z82.3 Family history of stroke; Z82.49 Family history of ischemic heart disease and other diseases of the circulatory system; Z82.5 Family history of asthma and other chronic lower respiratory diseases; Z83.3 Family history of diabetes mellitus; Z90.711 Acquired absence of uterus with remaining cervical stump; Z90.49 Acquired absence of other specified parts of digestive tract; Z68.31 Body mass index [BMI] 31.0-31.9, adult; I25.2 Old myocardial infarction
CPT/HCPCS: 36415; 36600; 71045; 71250; 76770; 78452; 80053; 80061; 81001; 82270; 82570; 82728; 82803; 82948; 83036; 83540; 83550; 83605; 83735; 83880; 84100; 84132; 84145; 84156; 84484; 85025; 85027; 85610; 85730; 86140; 87040; 87426; 93005; 93017; 93458; 93970; 94660; 94664; 96374; 99156; 99157; A9500; C1769; C1887; C1894; C9600; G0378; J0360; J0456; J0583; J0696; J1100; J1644; J1650; J1815; J1940; J2250; J2785; J3010; J3480; J3490; J7120; Q9967; U0003

== ENCOUNTER → 2020-10-17 | Outpatient (CLI) | payer OTHER ==
[~2020-10-17] VITALS: Ht 154.9 cm; Wt 86.2 kg
[2020-10-17] MEDS: REGADENOSON 0.4 MG/5 ML PF SYG IVP SCH (12:44)
== END | disposition home or self-care (01) ==
LOC: SHCH 07:53
PROVIDERS: ATTEND Internal Medicine Cardiovascular Disease
DX: R07.9 Chest pain, unspecified (principal); R06.09 Other forms of dyspnea; I20.9 Angina pectoris, unspecified
CPT/HCPCS: 78452; 93017; 96374; A9500 ×2; J2785 ×2

== ENCOUNTER 2021-01-26 07:29 | Emergency (ER) | payer OTHER ==
[~2021-01-26 07:29] MED LIST changes: -AMLO-257 PO; -AMLO2.5T4 PO; +AMOX-426 PO; -BRIM5DRO4 OP; +CLOP75TA32 PO; +INSU100I15 SQ; +INSU100V37 SQ; -LABE300T2 PO; -LATA2.5D14 OP; +LISI1TAB32 PO; -LISI1TAB49 PO; -METF500S7 PO; -METF500T PO; -PIOG15TA66 PO
[2021-01-26 08:25] LABS: CREATININE 1.1 mg/dL (0.5-1.5); POTASSIUM 3.8 mmol/L (3.5-5.1)
[2021-01-26] MEDS ORDERED: HYDRALAZINE HCL 20 MG/ML VIAL IV SCH (13:00)
[2021-01-26] MEDS ORDERED: HYDRALAZINE HCL 20 MG/ML VIAL ONE (13:03)
== END 2021-01-26 16:47 | disposition home or self-care (01) ==
LOC: EDH 07:29
DX: I11.0 Hypertensive heart disease with heart failure (principal); I50.9 Heart failure, unspecified; E11.9 Type 2 diabetes mellitus without complications; E78.5 Hyperlipidemia, unspecified; Z95.5 Presence of coronary angioplasty implant and graft; Z90.49 Acquired absence of other specified parts of digestive tract; Z90.710 Acquired absence of both cervix and uterus
CPT/HCPCS: 36415; 80048; 82948; 83880; 84484; 93005; J0360

== ENCOUNTER 2021-05-12 15:00 | Inpatient (IN) | payer OTHER ==
[2021-05-12] VITALS (7 sets, daily range): BP systolic 138–226; BP diastolic 53–101
[~2021-05-12] VITALS: Ht 152.4 cm; Wt 91.0 kg
[2021-05-12] MEDS ORDERED: IPRATROPIUM/ALBUTEROL SULFATE 3 ML SOLUTION IH ONE ×2 (15:18→15:30)
[2021-05-12] MEDS ORDERED: FUROSEMIDE 40MG VIAL ONE (15:21)
[2021-05-12] MEDS ORDERED: CEFTRIAXONE 1G VIAL ONE (15:21)
[2021-05-12] MEDS ORDERED: NITROGLYCERIN 0.4 MG SL TAB SL ONE (15:22)
[2021-05-12] MEDS ORDERED: 0.9%NACL 50ML 50 ML IV ONE (15:22)
[2021-05-12] MEDS ORDERED: ASPIRIN 325MG TAB ONE (15:22)
[2021-05-12] MEDS ORDERED: HYDRALAZINE 20MG/ML VIAL IV SCH (15:30)
[2021-05-12 15:59] LABS: CREATININE 1.3 mg/dL (0.5-1.5); POTASSIUM 3.7 mmol/L (3.5-5.1)
[2021-05-12 16:00] LABS: INR 0.92 (0.85-1.15); PROTHROMBIN TIME 10.1 SEC (9.6-11.6)
[2021-05-12 16:02] LABS: PARTIAL THROMBOPLASTIN TIME 24.1 SEC (26.3-35.5)
[2021-05-12 16:03] LABS: ALBUMIN 3.3 g/dL (3.5-5.0); BILIRUBIN,TOTAL 0.3 mg/dL (0.2-1.0); CRP QUANTITATIVE 6.1 mg/L (0.00-9.0); MAGNESIUM 2.3 mg/dL (1.80-2.40); TOTAL PROTEIN, SERUM 7.8 g/dL (6.0-8.3)
[2021-05-12 16:37] LABS: BASOPHILS % (AUTO) 0.5 % (0.0-5.0); EOSINOPHILS % (AUTO) 1.7 % (0.0-8.0); HEMATOCRIT 37.4 % (36-48); LYMPHOCYTES % (AUTO) 26.3 % (21.0-51.0); MEAN CORPUSCULAR HEMOGLOBIN 28.7 pg (27.0-33.0); MEAN CORPUSCULAR HGB CONC 31.3 g/dL (32.0-36.0); MEAN CORPUSCULAR VOLUME 91.7 fL (79-99); MONOCYTES % (AUTO) 6.9 % (3.0-13.0); NEUTROPHILS % (AUTO) 64.1 % (40.0-77.0); PLATELET COUNT (AUTO) 301 K/uL (130-400); RED BLOOD CELL COUNT(AUTO) 4.08 MIL/uL (4.00-5.50); RED CELL DISTRIBUTION WIDTH 13.6 % (11.0-15.5); WHITE BLOOD COUNT (AUTO) 11.8 K/uL (4.8-10.8)
[2021-05-12] MEDS ORDERED: DEXAMETHASONE SOD PHOSPHATE 4 MG/ML 1ML VIAL IVP STA (17:45)
[2021-05-12] MEDS ORDERED: ENOXAPARIN SODIUM 100 MG/1 ML SQ STA (17:45)
[2021-05-12] MEDS ORDERED: MAGNESIUM 2GM PREMIX 50ML 50 ML IV SCH (18:00)
[2021-05-12] MEDS: NICARDIPINE 25MG INJ 25 MG in 0.9% NACL 250ML 240 ML IV SCH (18:40)
[2021-05-12] MEDS ORDERED: NICARDIPINE 25MG INJ IV ONE (18:44)
[2021-05-12] MEDS ORDERED: ENOXAPARIN SODIUM 100 MG/1 ML SQ ONE (18:49)
[2021-05-12] MEDS ORDERED: DEXAMETHASONE SOD PHOSPHATE 10MG/ML 1ML VIAL ONE (18:50)
[2021-05-12 18:51] LABS: ABG BASE EXCESS -0.2 mmol/L (-2.0-3.0); ABG HCO3 26.1 mmol/L (21.0-28.0); ABG OXYGEN SATURATION 99.1 % (95.0-99.0); ABG PCO2 50 mmHg (32-45)
[2021-05-12] MEDS ORDERED: NITROGLYCERIN 0.4 MG SL TAB SL PRN (19:00)
[2021-05-12] MEDS ORDERED: ACETAMINOPHEN 325 MG TAB PO PRN (19:00)
[2021-05-12] MEDS ORDERED: LACTULOSE 20 GM/30 ML UDCUP PO PRN (19:00)
[2021-05-12] MEDS ORDERED: ONDANSETRON 4MG INJ IV PRN (19:00)
[2021-05-12 19:27] LABS: MAGNESIUM 2.2 mg/dL (1.80-2.40); THYROID STIMULATING HORMONE 0.83 uIU/mL (0.36-3.74)
[2021-05-12 19:53] LABS: HEMOGLOBIN A1C 8.2 % (4.0-6.0)
[2021-05-12 19:54] LABS: CHOLESTEROL 149 mg/dL (<200); HDL CHOLESTEROL 58 mg/dL (35-85); LDL DIRECT 64 mg/dL (0-99); TRIGLYCERIDES 93 mg/dL (30-200)
[2021-05-12] MEDS: FUROSEMIDE 40MG VIAL IVP SCH (21:00)
[2021-05-12] MEDS: INSULIN HUMULIN R 100 UNIT/ML 3ML SQ SCH (21:22)
[2021-05-13] VITALS (42 sets, daily range): BP systolic 139–204; BP diastolic 51–174
[2021-05-13] MEDS ORDERED: NICARDIPINE 25MG INJ IV ONE (03:35)
[2021-05-13] MEDS ORDERED: 0.9% NACL 250ML 250 ML ONE (03:36)
[2021-05-13] MEDS: NICARDIPINE 25MG INJ 25 MG in 0.9% NACL 250ML 240 ML IV SCH ×6 (03:57→22:40)
[2021-05-13 06:43] LABS: BASOPHILS % (AUTO) 0.1 % (0.0-5.0); LYMPHOCYTES % (AUTO) 10.5 % (21.0-51.0); MEAN CORPUSCULAR HEMOGLOBIN 28.7 pg (27.0-33.0); MEAN CORPUSCULAR HGB CONC 30.6 g/dL (32.0-36.0); MEAN CORPUSCULAR VOLUME 93.6 fL (79-99); MONOCYTES % (AUTO) 0.5 % (3.0-13.0); NEUTROPHILS % (AUTO) 88.4 % (40.0-77.0); PLATELET COUNT (AUTO) 246 K/uL (130-400); RED BLOOD CELL COUNT(AUTO) 3.42 MIL/uL (4.00-5.50); RED CELL DISTRIBUTION WIDTH 13.8 % (11.0-15.5); WHITE BLOOD COUNT (AUTO) 9.2 K/uL (4.8-10.8)
[2021-05-13] MEDS: INSULIN HUMULIN R 100 UNIT/ML 3ML SQ SCH ×4 (06:46→21:02)
[2021-05-13 06:48] LABS: CREATININE 1.6 mg/dL (0.5-1.5)
[2021-05-13 07:39] LABS: B-TYPE NATRIURETIC PEPTIDE 986 pg/mL (0-100)
[2021-05-13] MEDS: FUROSEMIDE 40MG VIAL IVP SCH ×2 (09:59→20:18)
[2021-05-13] MEDS: PANTOPRAZOLE 40 MG TAB DR PO SCH (09:59)
[2021-05-13] MEDS: ENOXAPARIN SODIUM 40 MG/0.4 ML SYRINGE SQ SCH (10:00)
[2021-05-13] MEDS ORDERED: CLON0.2T PO (10:12)
[2021-05-13] MEDS ORDERED: ASPI-1197 PO (10:12)
[2021-05-13] MEDS ORDERED: POTA-79 PO (10:12)
[2021-05-13] MEDS ORDERED: ESCI5TAB16 PO (10:12)
[2021-05-13] MEDS ORDERED: FURO20TA4 PO (10:12)
[2021-05-13] MEDS ORDERED: HYDR-4154 PO (10:12)
[2021-05-13] MEDS ORDERED: BRIM10DR16 OP (10:12)
[2021-05-13] MEDS ORDERED: CARV25TA PO (10:12)
[2021-05-13] MEDS ORDERED: LISI20TA24 PO (10:12)
[2021-05-13] MEDS ORDERED: PIOG15TA66 PO (10:12)
[2021-05-13] MEDS ORDERED: CLOP75TA32 PO (10:12)
[2021-05-13] MEDS ORDERED: AMLO-257 PO (10:12)
[2021-05-13] MEDS ORDERED: FERS325 PO (10:12)
[2021-05-13] MEDS ORDERED: ATOR40TA69 PO (10:12)
[2021-05-13] MEDS ORDERED: BUSP5TAB3 PO (10:12)
[2021-05-13] MEDS: ACETAMINOPHEN 325 MG TAB PO PRN ×3 (13:47→22:54)
[2021-05-13] MEDS ORDERED: ACETAMINOPHEN 325 MG TAB ONE ×2 (17:37→21:04)
[2021-05-13] MEDS: HYDRALAZINE 25MG TABLET PO SCH (18:22)
[2021-05-13 18:30] LABS: APPEARANCE,URINE Turbid (CLEAR); BILIRUBIN,URINE Negative (NEGATIVE); COLOR,URINE Yellow (YELLOW); GLUCOSE, URINE (UA) >=1000 mg/dL (NEGATIVE); KETONES,URINE Trace mg/dL (NEGATIVE); LEUKOCYTE ESTERASE ,URINE Negative (NEGATIVE); NITRATE,URINE Negative (NEGATIVE); OCCULT BLOOD,URINE Moderate (NEGATIVE); PROTEIN,URINE >=1000 mg/dL (NEGATIVE); UROBILINOGEN,URINE 0.2 mg/dL (0.2-1.0)
[2021-05-13 19:11] LABS: AMORPHOUS SEDIMENT,UR Moderate /LPF (None Seen); BACTERIA,URINE Few /HPF (None Seen)
[2021-05-13] MEDS: CEFTRIAXONE 2GM VIAL IVP SCH (19:39)
[2021-05-13] MEDS: ATORVASTATIN 40 MG TABLET PO SCH (20:16)
[2021-05-13] MEDS: BUSPIRONE HCL 5 MG TABLET PO SCH (20:16)
[2021-05-13] MEDS: LISINOPRIL 20 MG TABLET PO SCH (20:17)
[2021-05-13] MEDS: DORZOLAMIDE HCL 2% 10ML DROPS OP SCH (20:57)
[2021-05-13] MEDS: BRIMONIDINE TARTRATE 0.2% 5 ML BOTTLE OP SCH (20:57)
[2021-05-13] MEDS: INSULIN GLARGINE 100 UNITS/ML 10 ML VIAL SQ SCH (20:59)
[2021-05-14] VITALS (38 sets, daily range): BP systolic 111–181; BP diastolic 45–92
[2021-05-14] MEDS ORDERED: HYDRALAZINE 25MG TABLET ONE (00:42)
[2021-05-14] MEDS: HYDRALAZINE 25MG TABLET PO SCH ×3 (00:46→17:20)
[2021-05-14] MEDS: NICARDIPINE 25MG INJ 25 MG in 0.9% NACL 250ML 240 ML IV SCH ×3 (03:43→15:48)
[2021-05-14 03:45] LABS: BASOPHILS % (AUTO) 0.1 % (0.0-5.0); HEMATOCRIT 31.1 % (36-48); MEAN CORPUSCULAR HEMOGLOBIN 28.9 pg (27.0-33.0); MEAN CORPUSCULAR HGB CONC 31.8 g/dL (32.0-36.0); MEAN CORPUSCULAR VOLUME 90.7 fL (79-99); MONOCYTES % (AUTO) 7.6 % (3.0-13.0); NEUTROPHILS % (AUTO) 82.8 % (40.0-77.0); PLATELET COUNT (AUTO) 301 K/uL (130-400); RED BLOOD CELL COUNT(AUTO) 3.43 MIL/uL (4.00-5.50); RED CELL DISTRIBUTION WIDTH 14.1 % (11.0-15.5); WHITE BLOOD COUNT (AUTO) 16.7 K/uL (4.8-10.8)
[2021-05-14 04:01] LABS: ALBUMIN 2.9 g/dL (3.5-5.0); BILIRUBIN,TOTAL 0.3 mg/dL (0.2-1.0); CREATININE 1.9 mg/dL (0.5-1.5); MAGNESIUM 1.8 mg/dL (1.80-2.40); PHOSPHORUS 4.2 mg/dL (2.5-4.9); POTASSIUM 3.7 mmol/L (3.5-5.1); TOTAL PROTEIN, SERUM 6.5 g/dL (6.0-8.3)
[2021-05-14] MEDS: INSULIN HUMULIN R 100 UNIT/ML 3ML SQ SCH ×8 (06:46→21:37)
[2021-05-14] MEDS: FERROUS SULFATE 325 MG TABLET.DR PO SCH ×2 (08:56→16:31)
[2021-05-14] MEDS: AMLODIPINE 5 MG TAB PO SCH (08:56)
[2021-05-14] MEDS: LISINOPRIL 20 MG TABLET PO SCH ×2 (08:57→21:01)
[2021-05-14] MEDS: BUSPIRONE HCL 5 MG TABLET PO SCH ×2 (08:57→21:00)
[2021-05-14] MEDS: CITALOPRAM 20 MG TABLET PO SCH (08:57)
[2021-05-14] MEDS: CARVEDILOL 25 MG TABLET PO SCH ×2 (08:58→16:39)
[2021-05-14] MEDS: ASPIRIN 81MG CHEW TAB PO SCH (08:58)
[2021-05-14] MEDS: FUROSEMIDE 40MG VIAL IVP SCH (08:58)
[2021-05-14] MEDS: PANTOPRAZOLE 40 MG TAB DR PO SCH (08:58)
[2021-05-14] MEDS: ENOXAPARIN SODIUM 40 MG/0.4 ML SYRINGE SQ SCH (08:59)
[2021-05-14] MEDS: DORZOLAMIDE HCL 2% 10ML DROPS OP SCH ×2 (09:02→21:02)
[2021-05-14] MEDS: BRIMONIDINE TARTRATE 0.2% 5 ML BOTTLE OP SCH ×2 (09:02→21:02)
[2021-05-14] MEDS: CEFTRIAXONE 2GM VIAL IVP SCH (17:21)
[2021-05-14] MEDS: TRAZODONE HCL 50 MG TAB PO SCH (21:01)
[2021-05-14] MEDS: ATORVASTATIN 40 MG TABLET PO SCH (21:01)
[2021-05-14] MEDS: LABETALOL HCL 200 MG TABLET PO SCH (21:01)
[2021-05-14] MEDS: INSULIN GLARGINE 100 UNITS/ML 10 ML VIAL SQ SCH (21:34)
[2021-05-15] MEDS: HYDRALAZINE 25MG TABLET PO SCH ×3 (01:59→17:41)
[2021-05-15 03:29] LABS: BASOPHILS % (AUTO) 0.3 % (0.0-5.0); EOSINOPHILS % (AUTO) 0.1 % (0.0-8.0); LYMPHOCYTES % (AUTO) 15.6 % (21.0-51.0); MEAN CORPUSCULAR HEMOGLOBIN 28.9 pg (27.0-33.0); MEAN CORPUSCULAR HGB CONC 31.4 g/dL (32.0-36.0); MEAN CORPUSCULAR VOLUME 92.1 fL (79-99); MONOCYTES % (AUTO) 10.4 % (3.0-13.0); NEUTROPHILS % (AUTO) 72.9 % (40.0-77.0); PLATELET COUNT (AUTO) 239 K/uL (130-400); RED BLOOD CELL COUNT(AUTO) 3.15 MIL/uL (4.00-5.50); RED CELL DISTRIBUTION WIDTH 14.6 % (11.0-15.5); WHITE BLOOD COUNT (AUTO) 13.4 K/uL (4.8-10.8)
[2021-05-15 03:40] LABS: ALBUMIN 2.5 g/dL (3.5-5.0); BILIRUBIN,TOTAL 0.2 mg/dL (0.2-1.0); CREATININE 1.6 mg/dL (0.5-1.5); TOTAL PROTEIN, SERUM 5.7 g/dL (6.0-8.3)
[2021-05-15 04:30] VITALS: BP 139/71
[2021-05-15] MEDS ORDERED: KCL 20 MEQ ERTAB PO ONE (05:44)
[2021-05-15] MEDS: INSULIN HUMULIN R 100 UNIT/ML 3ML SQ SCH ×6 (05:56→21:16)
[2021-05-15] MEDS ORDERED: KCL 20 MEQ ERTAB PO SCH (06:00)
[2021-05-15 07:30] VITALS: BP 166/79
[2021-05-15] MEDS: AMLODIPINE 5 MG TAB PO SCH (08:41)
[2021-05-15] MEDS: PANTOPRAZOLE 40 MG TAB DR PO SCH (08:41)
[2021-05-15] MEDS: ASPIRIN 81MG CHEW TAB PO SCH (08:41)
[2021-05-15] MEDS: CITALOPRAM 20 MG TABLET PO SCH (08:42)
[2021-05-15] MEDS: LABETALOL HCL 200 MG TABLET PO SCH ×3 (08:42→21:10)
[2021-05-15] MEDS: LISINOPRIL 20 MG TABLET PO SCH ×2 (08:42→21:09)
[2021-05-15] MEDS: FERROUS SULFATE 325 MG TABLET.DR PO SCH ×2 (08:42→17:41)
[2021-05-15] MEDS: BRIMONIDINE TARTRATE 0.2% 5 ML BOTTLE OP SCH ×2 (08:43→21:06)
[2021-05-15] MEDS: DORZOLAMIDE HCL 2% 10ML DROPS OP SCH ×2 (08:43→21:07)
[2021-05-15] MEDS: BUSPIRONE HCL 5 MG TABLET PO SCH ×3 (08:43→21:08)
[2021-05-15] MEDS: ENOXAPARIN SODIUM 40 MG/0.4 ML SYRINGE SQ SCH (08:57)
[2021-05-15 11:00] VITALS: BP 167/74
[2021-05-15] MEDS ORDERED: POTASSIUM CHLORIDE 20MEQ/10ML 20 MEQ in DEXTROSE 5%-WATER 1,000 ML IV SCH (15:30)
[2021-05-15 16:00] VITALS: BP 142/64
[2021-05-15] MEDS: CEFTRIAXONE 2GM VIAL IVP SCH (17:41)
[2021-05-15 19:00] VITALS: BP 150/65
[2021-05-15] MEDS: TRAZODONE HCL 50 MG TAB PO SCH (21:09)
[2021-05-15] MEDS: CLONIDINE HCL 0.1 MG TABLET PO SCH (21:09)
[2021-05-15] MEDS: ATORVASTATIN 40 MG TABLET PO SCH (21:09)
[2021-05-15] MEDS: INSULIN GLARGINE 100 UNITS/ML 10 ML VIAL SQ SCH (21:15)
[2021-05-15 23:00] VITALS: BP 141/54
[2021-05-16 03:00] VITALS: BP 141/54
[2021-05-16 03:50] LABS: ALBUMIN 2.3 g/dL (3.5-5.0); BILIRUBIN,TOTAL 0.4 mg/dL (0.2-1.0); CREATININE 1.5 mg/dL (0.5-1.5); HEMATOCRIT 27.9 % (36-48); MEAN CORPUSCULAR HEMOGLOBIN 28.9 pg (27.0-33.0); MEAN CORPUSCULAR HGB CONC 30.8 g/dL (32.0-36.0); MEAN CORPUSCULAR VOLUME 93.6 fL (79-99); PHOSPHORUS 3.4 mg/dL (2.5-4.9); PLATELET COUNT (AUTO) 211 K/uL (130-400); RED BLOOD CELL COUNT(AUTO) 2.98 MIL/uL (4.00-5.50); RED CELL DISTRIBUTION WIDTH 14.6 % (11.0-15.5); TOTAL PROTEIN, SERUM 5.5 g/dL (6.0-8.3); WHITE BLOOD COUNT (AUTO) 8.5 K/uL (4.8-10.8)
[2021-05-16 04:03] LABS: B-TYPE NATRIURETIC PEPTIDE 430 pg/mL (0-100)
[2021-05-16 04:19] LABS: BASOPHILS % (MANUAL) 1 % (0-2); LYMPHOCYTES % (MANUAL) 27 % (22-44); MAN.DIFF COMMENT-IMPRESSION MANUAL DIFFERENTIAL; MONOCYTES % (MANUAL) 10 % (2-9); PLATELET MORPHOLOGY COMMENT ADEQUATE; SEGMENTED NEUTROPHILS % 62 % (40-70)
[2021-05-16] MEDS: HYDRALAZINE 25MG TABLET PO SCH ×3 (05:54→17:38)
[2021-05-16] MEDS: INSULIN HUMULIN R 100 UNIT/ML 3ML SQ SCH ×7 (05:56→20:37)
[2021-05-16 08:00] VITALS: BP 166/80
[2021-05-16] MEDS: CLONIDINE HCL 0.1 MG TABLET PO SCH ×2 (10:12→17:40)
[2021-05-16] MEDS: PANTOPRAZOLE 40 MG TAB DR PO SCH (10:12)
[2021-05-16] MEDS: CITALOPRAM 20 MG TABLET PO SCH (10:12)
[2021-05-16] MEDS: AMLODIPINE 5 MG TAB PO SCH (10:12)
[2021-05-16] MEDS: BUSPIRONE HCL 5 MG TABLET PO SCH ×3 (10:13→20:35)
[2021-05-16] MEDS: LISINOPRIL 20 MG TABLET PO SCH ×2 (10:13→20:35)
[2021-05-16] MEDS: LABETALOL HCL 200 MG TABLET PO SCH ×2 (10:13→17:40)
[2021-05-16] MEDS: ASPIRIN 81MG CHEW TAB PO SCH (10:13)
[2021-05-16] MEDS: ENOXAPARIN SODIUM 40 MG/0.4 ML SYRINGE SQ SCH (10:14)
[2021-05-16] MEDS: FERROUS SULFATE 325 MG TABLET.DR PO SCH ×2 (10:15→17:38)
[2021-05-16] MEDS: BRIMONIDINE TARTRATE 0.2% 5 ML BOTTLE OP SCH ×2 (10:16→20:39)
[2021-05-16] MEDS: DORZOLAMIDE HCL 2% 10ML DROPS OP SCH ×2 (10:16→20:40)
[2021-05-16 12:15] VITALS: BP 150/47
[2021-05-16 16:00] VITALS: BP 158/49
[2021-05-16] MEDS: CEFTRIAXONE 2GM VIAL IVP SCH (17:40)
[2021-05-16 19:00] VITALS: BP 146/52
[2021-05-16] MEDS ORDERED: DEXTROSE 5%-WATER 1,000 ML IV SCH (19:00)
[2021-05-16] MEDS: ATORVASTATIN 40 MG TABLET PO SCH (20:35)
[2021-05-16] MEDS: TRAZODONE HCL 50 MG TAB PO SCH (20:35)
[2021-05-16] MEDS: INSULIN GLARGINE 100 UNITS/ML 10 ML VIAL SQ SCH (20:38)
[2021-05-16] MEDS: LABETALOL HCL 100 MG TABLET PO SCH (20:54)
[2021-05-16] MEDS: CLONIDINE HCL 0.2 MG TABLET PO SCH (20:54)
[2021-05-16 23:00] VITALS: BP 140/60
[2021-05-17] MEDS: HYDRALAZINE 25MG TABLET PO SCH ×2 (02:16→08:07)
[2021-05-17 03:00] VITALS: BP 137/54
[2021-05-17 04:16] LABS: HEMATOCRIT 28.2 % (36-48); MEAN CORPUSCULAR HEMOGLOBIN 28.7 pg (27.0-33.0); MEAN CORPUSCULAR HGB CONC 30.9 g/dL (32.0-36.0); MEAN CORPUSCULAR VOLUME 93.1 fL (79-99); RED BLOOD CELL COUNT(AUTO) 3.03 MIL/uL (4.00-5.50); RED CELL DISTRIBUTION WIDTH 14.4 % (11.0-15.5); WHITE BLOOD COUNT (AUTO) 7.8 K/uL (4.8-10.8)
[2021-05-17 04:36] LABS: % IRON SATURATION 22.8 % (22-44)
[2021-05-17 04:59] LABS: CREATININE 1.4 mg/dL (0.5-1.5); MAGNESIUM 1.8 mg/dL (1.80-2.40); PHOSPHORUS 3.6 mg/dL (2.5-4.9); POTASSIUM 3.5 mmol/L (3.5-5.1); THYROID STIMULATING HORMONE 0.13 uIU/mL (0.36-3.74)
[2021-05-17] MEDS: INSULIN HUMULIN R 100 UNIT/ML 3ML SQ SCH ×6 (06:15→17:00)
[2021-05-17 08:04] VITALS: BP 200/78
[2021-05-17] MEDS: ASPIRIN 81MG CHEW TAB PO SCH (08:07)
[2021-05-17] MEDS: LABETALOL HCL 100 MG TABLET PO SCH (08:08)
[2021-05-17] MEDS: CLONIDINE HCL 0.2 MG TABLET PO SCH ×2 (08:08→14:27)
[2021-05-17] MEDS: FERROUS SULFATE 325 MG TABLET.DR PO SCH ×2 (08:09→17:24)
[2021-05-17] MEDS: AMLODIPINE 5 MG TAB PO SCH (08:09)
[2021-05-17] MEDS: BUSPIRONE HCL 5 MG TABLET PO SCH ×2 (08:09→14:26)
[2021-05-17] MEDS: CITALOPRAM 20 MG TABLET PO SCH (08:09)
[2021-05-17] MEDS: PANTOPRAZOLE 40 MG TAB DR PO SCH (08:10)
[2021-05-17] MEDS: DORZOLAMIDE HCL 2% 10ML DROPS OP SCH (08:10)
[2021-05-17] MEDS: LISINOPRIL 20 MG TABLET PO SCH (08:10)
[2021-05-17] MEDS: BRIMONIDINE TARTRATE 0.2% 5 ML BOTTLE OP SCH (08:10)
[2021-05-17] MEDS: ENOXAPARIN SODIUM 40 MG/0.4 ML SYRINGE SQ SCH (08:11)
[2021-05-17 09:39] VITALS: BP 142/69
[2021-05-17 12:17] VITALS: BP 111/51
[2021-05-17 14:27] VITALS: BP 111/51
[2021-05-17] MEDS ORDERED: LABE300T2 PO (16:27)
[2021-05-17] MEDS ORDERED: BUSP7.5T7 PO (16:27)
[2021-05-17] MEDS ORDERED: TRAZ-253 PO (16:27)
== END 2021-05-17 18:07 | disposition home or self-care (01) | DRG 291 ==
LOC: EDH 15:00 → INTOOBSV 18:42 → EDHIP 18:42 → OBSVTOIN 18:42 → UNDOADMOB 18:42 → EDHIP 05-13 03:22 → 2DH 05-13 03:22 → UNDODISIN 05-17 18:07
PROVIDERS: ADMIT Internal Medicine; ATTEND Internal Medicine
PROC: 5A09357 Assistance with Respiratory Ventilation, Less than 24 Consecutive Hours, Continuous Positive Airway Pressure (ICD-10-PCS; principal; 2021-05-12)
PROC: 5A09357 Assistance with Respiratory Ventilation, Less than 24 Consecutive Hours, Continuous Positive Airway Pressure (ICD-10-PCS; 2021-05-13)
PROC: 5A09357 Assistance with Respiratory Ventilation, Less than 24 Consecutive Hours, Continuous Positive Airway Pressure (ICD-10-PCS; 2021-05-14)
DX: I13.0 Hypertensive heart and chronic kidney disease with heart failure and stage 1 through stage 4 chronic kidney disease, or unspecified chronic kidney disease (principal); I50.43 Acute on chronic combined systolic (congestive) and diastolic (congestive) heart failure; J96.01 Acute respiratory failure with hypoxia; I16.1 Hypertensive emergency; E87.0 Hyperosmolality and hypernatremia; E11.22 Type 2 diabetes mellitus with diabetic chronic kidney disease; I25.10 Atherosclerotic heart disease of native coronary artery without angina pectoris; E78.00 Pure hypercholesterolemia, unspecified; E78.5 Hyperlipidemia, unspecified; N18.30 Chronic kidney disease, stage 3 unspecified; F41.9 Anxiety disorder, unspecified; I05.0 Rheumatic mitral stenosis; E66.9 Obesity, unspecified; Z20.822 Contact with and (suspected) exposure to COVID-19; Z68.39 Body mass index [BMI] 39.0-39.9, adult; Z79.899 Other long term (current) drug therapy; Z90.710 Acquired absence of both cervix and uterus; Z90.49 Acquired absence of other specified parts of digestive tract; Z79.4 Long term (current) use of insulin; Z83.3 Family history of diabetes mellitus; Z82.3 Family history of stroke; Z82.5 Family history of asthma and other chronic lower respiratory diseases; Z82.49 Family history of ischemic heart disease and other diseases of the circulatory system; Z82.0 Family history of epilepsy and other diseases of the nervous system
CPT/HCPCS: 36415; 36600; 70450; 71045; 80048; 80053; 80061; 81001; 82435; 82550; 82607; 82728; 82746; 82803; 82947; 82948; 83036; 83540; 83550; 83605; 83735; 83874; 83880; 84100; 84132; 84145; 84295; 84443; 84484; 85018; 85025; 85027; 85378; 85610; 85730; 86140; 87040; 87088; 87635; 93005; 93306; 93356; 94640; 94660; 97039; 99291; C9803; G0378; J0360; J0696; J1100; J1650; J1815; J1940; J3480; J3490; J7050; J7070

== ENCOUNTER 2022-09-08 11:05 | Observation (INO) | payer OTHER, MEDICARE ==
[~2022-09-08] VITALS: Ht 152.4 cm; Wt 69.0 kg
[~2022-09-08 11:05] MED LIST changes: -AMOX-426 PO; +ASPI-1197 PO; +BRIM10DR16 OP; +BUSP5TAB3 PO; -CLOP75TA32 PO; -DULA1.5P SQ; +FERS325 PO; +FURO40TA5 PO; +LABE300T4 PO; +LATA7.5D OP; -LISI1TAB32 PO; +MINO2.5 PO; +NIFE90TA65 PO; +TRAZ-253 PO
[2022-09-08 11:36] LABS: BASOPHILS % (AUTO) 0.7 % (0.0-5.0); LYMPHOCYTES % (AUTO) 17.7 % (21.0-51.0); MEAN CORPUSCULAR HGB CONC 32.7 g/dL (32.0-36.0); MONOCYTES % (AUTO) 7.1 % (3.0-13.0); NEUTROPHILS % (AUTO) 72.1 % (40.0-77.0); PLATELET COUNT (AUTO) 333 K/uL (130-400); RED BLOOD CELL COUNT(AUTO) 2.03 MIL/uL (4.00-5.50); RED CELL DISTRIBUTION WIDTH 15.8 % (11.0-15.5); WHITE BLOOD COUNT (AUTO) 9.7 K/uL (4.8-10.8)
[2022-09-08 11:51] LABS: CREATININE 4.3 mg/dL (0.5-1.5); POTASSIUM 3.6 mmol/L (3.5-5.1)
[2022-09-08 11:54] LABS: HEMATOCRIT 19.9 % (36-48)
[2022-09-08 11:56] LABS: ALBUMIN 3.4 g/dL (3.5-5.0); TOTAL PROTEIN, SERUM 6.9 g/dL (6.0-8.3)
[2022-09-08] MEDS ORDERED: OCTREOTIDE ACETATE 100 MCG/ML AMP IV STA (12:43)
[2022-09-08] MEDS ORDERED: PANTOPRAZOLE 40 MG/VIAL IVP ONE (13:00)
[2022-09-08] MEDS ORDERED: CEFTRIAXONE 1G VIAL IVP SCH (13:30)
[2022-09-08] MEDS: OCTREOTIDE ACETATE 1,250 MCG in 0.9% NACL 250ML 250 ML IV SCH ×2 (14:07→19:18)
[2022-09-08] MEDS: PANTOPRAZOLE 40MG INJ 80 MG in 0.9%NACL 100ML 100 ML IVP SCH ×2 (14:07→22:30)
[2022-09-08 15:42] LABS: HEMOGLOBIN A1C 6.9 % (4.0-6.0)
[2022-09-08] MEDS: INSULIN HUMULIN R 100 UNIT/ML 3ML SQ SCH (17:19)
[2022-09-08] MEDS ORDERED: PANT20TA PO (17:38)
[2022-09-08] MEDS ORDERED: DORZ10DR10 OP (17:38)
[2022-09-08] MEDS ORDERED: INSU100V37 SQ (17:38)
[2022-09-08] MEDS ORDERED: FOLI0.8T22 PO (17:38)
[2022-09-08] MEDS ORDERED: SUCR1TAB28 PO (17:38)
[2022-09-08 18:17] LABS: HEMATOCRIT 21.9 % (36-48)
[2022-09-08] MEDS ORDERED: DEXTROSE 50%-WATER 50 ML DISP.SYRIN IV ONE (18:51)
[2022-09-08 21:20] VITALS: BP 154/48
[2022-09-08 23:35] LABS: HEMATOCRIT 22.7 % (36-48)
[2022-09-08 23:57] VITALS: BP 147/57
[2022-09-09] VITALS (27 sets, daily range): BP systolic 98–178; BP diastolic 52–79
[2022-09-09] MEDS ORDERED: DEXTROSE 50%-WATER 50 ML DISP.SYRIN IV ONE ×2 (04:57→10:32)
[2022-09-09] MEDS: INSULIN HUMULIN R 100 UNIT/ML 3ML SQ SCH ×5 (05:40→20:37)
[2022-09-09 07:14] LABS: BASOPHILS % (AUTO) 0.8 % (0.0-5.0); EOSINOPHILS % (AUTO) 1.9 % (0.0-8.0); LYMPHOCYTES % (AUTO) 19.6 % (21.0-51.0); MEAN CORPUSCULAR HEMOGLOBIN 30.5 pg (27.0-33.0); MEAN CORPUSCULAR VOLUME 92.4 fL (79-99); MONOCYTES % (AUTO) 8.6 % (3.0-13.0); NEUTROPHILS % (AUTO) 68.6 % (40.0-77.0); PLATELET COUNT (AUTO) 268 K/uL (130-400); RED BLOOD CELL COUNT(AUTO) 2.49 MIL/uL (4.00-5.50); RED CELL DISTRIBUTION WIDTH 17.8 % (11.0-15.5)
[2022-09-09 07:29] LABS: CREATININE 5.1 mg/dL (0.5-1.5); POTASSIUM 3.4 mmol/L (3.5-5.1)
[2022-09-09 09:27] LABS: INR 0.93 (0.85-1.15)
[2022-09-09 09:28] LABS: PARTIAL THROMBOPLASTIN TIME 24.7 SEC (26.3-35.5)
[2022-09-09] MEDS: PANTOPRAZOLE 40MG INJ 80 MG in 0.9%NACL 100ML 100 ML IVP SCH (10:01)
[2022-09-09] MEDS ORDERED: HEPARIN 5,000 UNIT VIAL IV PRN (10:30)
[2022-09-09] MEDS ORDERED: DEXTROSE 5 % AND 0.9 % NACL 1,000 ML IV ONE (10:38)
[2022-09-09] MEDS ORDERED: 0.9%NACL 1000ML 1,000 ML IV ONE (11:28)
[2022-09-09] MEDS ORDERED: COMPOUND IV REFRIGERATED 1 EACH IVSOLN MISC PRN (12:00)
[2022-09-09] MEDS ORDERED: PROPOFOL 10 MG/ML 20ML VIAL IV ONE ×2 (12:21→12:22)
[2022-09-09] MEDS ORDERED: LIDOCAINE PF 100MG/5ML (2%) SYRINGE 5ML ONE (12:22)
[2022-09-09] MEDS ORDERED: DORZOLAMIDE HCL/TIMOLOL MALEAT DROPS 10 ML BOTTLE OP SCH (12:30)
[2022-09-09] MEDS: Vitamin B Complex/Vit C/Folic Acid PO SCH (12:39)
[2022-09-09] MEDS ORDERED: CEFTRIAXONE 1G VIAL IVP SCH ×2 (13:30→21:00)
[2022-09-09] MEDS: SUCRALFATE 1 GM TABLET PO SCH (17:00)
[2022-09-09] MEDS: FERROUS SULFATE 325 MG TABLET.DR PO SCH (17:00)
[2022-09-09] MEDS ORDERED: LATANOPROST 2.5 ML DROPS OP SCH (21:00)
[2022-09-09] MEDS ORDERED: TRAZODONE HCL 50 MG TAB PO SCH (21:00)
[2022-09-09] MEDS: BRIMONIDINE OP SCH (21:00)
[2022-09-09] MEDS ORDERED: ATORVASTATIN 40 MG TABLET PO SCH (21:00)
[2022-09-09] MEDS ORDERED: MINOXIDIL 2.5 MG TAB PO SCH (21:00)
[2022-09-09] MEDS: DORZOLAMIDE OP SCH (21:00)
[2022-09-09] MEDS: BUSPIRONE HCL 5 MG TABLET PO SCH (22:39)
[2022-09-09] MEDS ORDERED: CYAN250014 PO (22:51)
[2022-09-09] MEDS ORDERED: SEVE2.4P3 PO (22:52)
[2022-09-09] MEDS ORDERED: FOLI0.8T22 PO (22:54)
[2022-09-09] MEDS ORDERED: BRIM5DRO4 OP (22:55)
[2022-09-09] MEDS ORDERED: DORZ10DR19 OP (22:56)
[2022-09-10] VITALS: BP 99/46
[2022-09-10 03:58] VITALS: BP 131/50
[2022-09-10 05:12] LABS: BASOPHILS % (AUTO) 0.8 % (0.0-5.0); EOSINOPHILS % (AUTO) 1.8 % (0.0-8.0); HEMATOCRIT 26.2 % (36-48); MEAN CORPUSCULAR HEMOGLOBIN 30.6 pg (27.0-33.0); MEAN CORPUSCULAR HGB CONC 31.7 g/dL (32.0-36.0); MEAN CORPUSCULAR VOLUME 96.7 fL (79-99); NEUTROPHILS % (AUTO) 64.2 % (40.0-77.0); PLATELET COUNT (AUTO) 277 K/uL (130-400); RED BLOOD CELL COUNT(AUTO) 2.71 MIL/uL (4.00-5.50); RED CELL DISTRIBUTION WIDTH 17.4 % (11.0-15.5); WHITE BLOOD COUNT (AUTO) 8.3 K/uL (4.8-10.8)
[2022-09-10 05:28] LABS: ALBUMIN 3.3 g/dL (3.5-5.0); CREATININE 3.5 mg/dL (0.5-1.5); POTASSIUM 3.4 mmol/L (3.5-5.1)
[2022-09-10] MEDS: INSULIN HUMULIN R 100 UNIT/ML 3ML SQ SCH ×2 (05:51→12:07)
[2022-09-10] MEDS: SUCRALFATE 1 GM TABLET PO SCH ×2 (06:37→12:01)
[2022-09-10] MEDS ORDERED: PANTOPRAZOLE 40 MG TAB DR PO SCH (07:30)
[2022-09-10 08:15] VITALS: BP 134/54
[2022-09-10] MEDS: FUROSEMIDE 40 MG TABLET PO SCH ×2 (09:00→09:51)
[2022-09-10] MEDS: BRIMONIDINE OP SCH (09:00)
[2022-09-10] MEDS ORDERED: DORZOLAMIDE HCL OP SCH (09:00)
[2022-09-10] MEDS: DORZOLAMIDE OP SCH (09:00)
[2022-09-10] MEDS: FERROUS SULFATE 325 MG TABLET.DR PO SCH (09:51)
[2022-09-10] MEDS: BUSPIRONE HCL 5 MG TABLET PO SCH (09:51)
[2022-09-10] MEDS: Vitamin B Complex/Vit C/Folic Acid PO SCH (09:51)
[2022-09-10] MEDS ORDERED: PANT20TA PO (10:10)
[2022-09-10] MEDS ORDERED: SUCR1TAB28 PO (10:10)
[2022-09-10 10:41] LABS: HEPATITIS B SURFACE ANTIGEN Non-Reactive (Nonreactive)
[2022-09-10 12:10] VITALS: BP 111/58
[2022-09-11] MEDS ORDERED: EPOETIN ALFA-EPBX (NON-ESRD) 10,000 UNIT/ML VIAL SQ SCH (09:00)
== END 2022-09-10 15:37 | disposition home or self-care (01) ==
LOC: EDH 11:05 → INTOOBSV 13:22 → EDHIP 13:22 → 4AH 21:07
PROVIDERS: ADMIT Internal Medicine; ATTEND Internal Medicine
DX: K25.9 Gastric ulcer, unspecified as acute or chronic, without hemorrhage or perforation (principal); Z20.822 Contact with and (suspected) exposure to COVID-19; K92.1 Melena; K29.70 Gastritis, unspecified, without bleeding; K44.9 Diaphragmatic hernia without obstruction or gangrene; K31.9 Disease of stomach and duodenum, unspecified; D62 Acute posthemorrhagic anemia; I13.2 Hypertensive heart and chronic kidney disease with heart failure and with stage 5 chronic kidney disease, or end stage renal disease; E11.22 Type 2 diabetes mellitus with diabetic chronic kidney disease; I50.9 Heart failure, unspecified; N18.6 End stage renal disease; D63.1 Anemia in chronic kidney disease; E78.5 Hyperlipidemia, unspecified; R54 Age-related physical debility; I48.91 Unspecified atrial fibrillation; E78.00 Pure hypercholesterolemia, unspecified; E11.65 Type 2 diabetes mellitus with hyperglycemia; E87.6 Hypokalemia; F41.1 Generalized anxiety disorder; I05.0 Rheumatic mitral stenosis; I25.10 Atherosclerotic heart disease of native coronary artery without angina pectoris; Z90.710 Acquired absence of both cervix and uterus; Z99.2 Dependence on renal dialysis; Z86.718 Personal history of other venous thrombosis and embolism; Z79.899 Other long term (current) drug therapy
CPT/HCPCS: 96376 ×2; 96365; 96366 ×3; 96375 ×2; 96368; 36430; 99285; 83036; 84484; 80053 ×2; 85025 ×3; 85014 ×3; 85018 ×3; 86850; 86900; 86901; 86923; 82948 ×14; 87426; 82270; 36415 ×3; 71045; 93005; 80048; 85610; 85730; 86706; 87340; 86704; 44360; 96372; 83735; P9016; J7070 ×3; J2354 ×2; C9113 ×3; J7050; J7042; J7030 ×2; J2001; J0696; J2704; J1644; A4620; A4520; A4215; A4223; A7002; A4222; A4216; A4606; G0378 ×4; J1815; 90935

== ENCOUNTER 2023-02-17 16:23 | Observation (INO) | payer OTHER, MEDICARE ==
[~2023-02-17] VITALS: Ht 152.4 cm; Wt 71.3 kg
[~2023-02-17 16:23] MED LIST changes: -ASPI-1197 PO; -BRIM10DR16 OP; +BRIM5DRO5 OP; +CYAN250014 PO; +DORZ10DR19 OP; +FOLI0.8T22 PO; -LABE300T4 PO; -MINO2.5 PO; -NIFE90TA65 PO; +PANT20TA PO; +SEVE2.4P3 PO; +SUCR1TAB28 PO; -TRAZ-253 PO
[2023-02-17] MEDS ORDERED: ACETAMINOPHEN 500 MG TABLET PO ONE (17:00)
[2023-02-17 17:02] LABS: BASOPHILS % (AUTO) 0.5 % (0.0-5.0); HEMATOCRIT 29.3 % (36-48); LYMPHOCYTES % (AUTO) 6.1 % (21.0-51.0); MEAN CORPUSCULAR HEMOGLOBIN 32.9 pg (27.0-33.0); MEAN CORPUSCULAR HGB CONC 31.7 g/dL (32.0-36.0); MEAN CORPUSCULAR VOLUME 103.5 fL (79-99); MONOCYTES % (AUTO) 11.9 % (3.0-13.0); NEUTROPHILS % (AUTO) 81.1 % (40.0-77.0); PLATELET COUNT (AUTO) 209 K/uL (130-400); RED BLOOD CELL COUNT(AUTO) 2.83 MIL/uL (4.00-5.50); RED CELL DISTRIBUTION WIDTH 14.7 % (11.0-15.5); WHITE BLOOD COUNT (AUTO) 7.7 K/uL (4.8-10.8)
[2023-02-17 17:28] LABS: CREATININE 4.3 mg/dL (0.5-1.5); POTASSIUM 4.1 mmol/L (3.5-5.1)
[2023-02-17 17:38] LABS: ALBUMIN 3.8 g/dL (3.5-5.0); TOTAL PROTEIN, SERUM 7.8 g/dL (6.0-8.3)
[2023-02-17 17:46] LABS: B-TYPE NATRIURETIC PEPTIDE 411 pg/mL (0-100)
[2023-02-17] MEDS ORDERED: DEXAMETHASONE SOD PHOSPHATE 4 MG/ML 1ML VIAL IVP ONE (19:00)
[2023-02-17 19:17] LABS: ABG BASE EXCESS 1.7 mmol/L (-2.0-3.0); ABG HCO3 25.3 mmol/L (21.0-28.0); ABG OXYGEN SATURATION 97.2 % (95.0-99.0); ABG PCO2 37 mmHg (32-45)
[2023-02-17] MEDS ORDERED: METO50TA18 PO (20:44)
[2023-02-17] MEDS ORDERED: CLOP-31 PO (20:44)
[2023-02-17] MEDS ORDERED: CILO100T3 PO (20:44)
[2023-02-17] MEDS ORDERED: MIDO5TAB4 PO (20:44)
[2023-02-17] MEDS ORDERED: GABA-529 PO (20:44)
[2023-02-17] MEDS ORDERED: FAMOTIDINE 20MG VIAL IV SCH (21:00)
[2023-02-17] MEDS ORDERED: ACETAMINOPHEN WITH CODEINE 1 TAB TAB PO PRN (21:30)
[2023-02-17] MEDS: DEXAMETHASONE SOD PHOSPHATE 4 MG/ML 1ML VIAL IVP SCH (21:30)
[2023-02-17] MEDS ORDERED: ONDANSETRON 4MG INJ IV PRN (21:30)
[2023-02-17] MEDS ORDERED: ACETAMINOPHEN 325 MG TAB PO PRN ×2 (21:30)
[2023-02-17] MEDS ORDERED: HYDROCODONE/ACETAMINOPHEN 5/325 MG TAB PO PRN (21:30)
[2023-02-17] MEDS: AZITHROMYCIN 500MG+NS 250ML 250 ML IV SCH (21:50)
[2023-02-17 22:45] VITALS: BP 139/64
[2023-02-17] MEDS: IPRATROPIUM/ALBUTEROL SULFATE 3 ML SOLUTION IH SCH (23:54)
[2023-02-18] MEDS: DOXYCYCLINE 100MG+NS 250ML IV SCH ×3 (00:29→21:31)
[2023-02-18 04:30] LABS: BASOPHILS % (AUTO) 0.2 % (0.0-5.0); HEMATOCRIT 28.9 % (36-48); LYMPHOCYTES % (AUTO) 11.9 % (21.0-51.0); MEAN CORPUSCULAR HEMOGLOBIN 32.8 pg (27.0-33.0); MEAN CORPUSCULAR HGB CONC 31.1 g/dL (32.0-36.0); MEAN CORPUSCULAR VOLUME 105.5 fL (79-99); MONOCYTES % (AUTO) 4.9 % (3.0-13.0); NEUTROPHILS % (AUTO) 82.6 % (40.0-77.0); PLATELET COUNT (AUTO) 234 K/uL (130-400); RED BLOOD CELL COUNT(AUTO) 2.74 MIL/uL (4.00-5.50); RED CELL DISTRIBUTION WIDTH 14.9 % (11.0-15.5); WHITE BLOOD COUNT (AUTO) 4.7 K/uL (4.8-10.8)
[2023-02-18 04:34] LABS: ALBUMIN 3.6 g/dL (3.5-5.0); CREATININE 5.4 mg/dL (0.5-1.5); POTASSIUM 4.7 mmol/L (3.5-5.1); TOTAL PROTEIN, SERUM 7.5 g/dL (6.0-8.3)
[2023-02-18 04:42] VITALS: BP 124/57
[2023-02-18] MEDS: IPRATROPIUM/ALBUTEROL SULFATE 3 ML SOLUTION IH SCH ×2 (07:27→11:29)
[2023-02-18] MEDS: INSULIN HUMULIN R 100 UNIT/ML 3ML SQ SCH ×4 (07:45→21:00)
[2023-02-18 08:13] VITALS: BP 138/62
[2023-02-18] MEDS: ENOXAPARIN SODIUM 40 MG/0.4 ML SYRINGE SQ SCH (09:35)
[2023-02-18] MEDS ORDERED: SEVELAMER CARBONATE 2.4 GM PO SCH (12:00)
[2023-02-18] MEDS ORDERED: NON-FORMULARY MEDICATION 1 EACH (Cyanocobalamin (Vitamin B-12) (Vitamin B12) 2,500 MCG) PO SCH (12:00)
[2023-02-18 12:45] VITALS: BP 112/49
[2023-02-18] MEDS: SUCRALFATE 1 GM TABLET PO SCH ×2 (14:20→17:02)
[2023-02-18] MEDS: GABAPENTIN 100 MG CAPSULE PO SCH ×2 (14:21→21:31)
[2023-02-18] MEDS: PHARMACY COMMUNICATION MISC SCH ×5 (14:30→19:30)
[2023-02-18 16:27] VITALS: BP 121/51
[2023-02-18] MEDS ORDERED: NON-FORMULARY MEDICATION 1 EACH (Ferrous Sulfate 325 MG) PO SCH (17:00)
[2023-02-18] MEDS: SEVELAMER HCL 800 MG TABLET PO SCH (17:02)
[2023-02-18] MEDS: FERROUS SULFATE 325 MG TABLET.DR PO SCH (17:02)
[2023-02-18 20:00] VITALS: BP 128/68
[2023-02-18] MEDS: DORZOLAMIDE HCL/TIMOLOL MALEAT DROPS 10 ML BOTTLE OP SCH (21:00)
[2023-02-18] MEDS ORDERED: NON-FORMULARY MEDICATION 1 EACH (Latanoprost/Pf (Latanoprost 0.005% Eye Drop) 7.5 ML) OP SCH (21:00)
[2023-02-18] MEDS: BRIMONIDINE TARTRATE 0.2% 5 ML BOTTLE OP SCH (21:00)
[2023-02-18] MEDS ORDERED: ATORVASTATIN 40 MG TABLET PO SCH (21:00)
[2023-02-18] MEDS ORDERED: LATANOPROST 2.5 ML DROPS OU SCH (21:00)
[2023-02-18] MEDS: BUSPIRONE HCL 5 MG TABLET PO SCH (21:10)
[2023-02-18] MEDS: CILOSTAZOL 100 MG TAB PO SCH (21:10)
[2023-02-18] MEDS: METOPROLOL TARTRATE 50 MG TAB PO SCH (21:10)
[2023-02-18] MEDS: AZITHROMYCIN 500MG+NS 250ML 250 ML IV SCH (21:31)
[2023-02-18] MEDS: DEXAMETHASONE SOD PHOSPHATE 4 MG/ML 1ML VIAL IVP SCH (21:32)
[2023-02-19] VITALS (21 sets, daily range): BP systolic 98–137; BP diastolic 40–57
[2023-02-19 04:00] LABS: BASOPHILS % (AUTO) 0.2 % (0.0-5.0); HEMATOCRIT 26.8 % (36-48); LYMPHOCYTES % (AUTO) 11.7 % (21.0-51.0); MEAN CORPUSCULAR HEMOGLOBIN 32.7 pg (27.0-33.0); MEAN CORPUSCULAR VOLUME 105.5 fL (79-99); MONOCYTES % (AUTO) 2.4 % (3.0-13.0); NEUTROPHILS % (AUTO) 85.3 % (40.0-77.0); PLATELET COUNT (AUTO) 241 K/uL (130-400); RED BLOOD CELL COUNT(AUTO) 2.54 MIL/uL (4.00-5.50); RED CELL DISTRIBUTION WIDTH 14.7 % (11.0-15.5); WHITE BLOOD COUNT (AUTO) 5.5 K/uL (4.8-10.8)
[2023-02-19 04:10] LABS: CREATININE 7.7 mg/dL (0.5-1.5); POTASSIUM 5.3 mmol/L (3.5-5.1)
[2023-02-19 04:15] LABS: ALBUMIN 3.2 g/dL (3.5-5.0); TOTAL PROTEIN, SERUM 6.6 g/dL (6.0-8.3)
[2023-02-19] MEDS: INSULIN HUMULIN R 100 UNIT/ML 3ML SQ SCH ×4 (06:39→21:00)
[2023-02-19] MEDS ORDERED: Vitamin B Complex/Vit C/Folic Acid PO SCH (09:00)
[2023-02-19] MEDS: DORZOLAMIDE HCL/TIMOLOL MALEAT DROPS 10 ML BOTTLE OP SCH (09:00)
[2023-02-19] MEDS ORDERED: CLOPIDOGREL 75MG TAB PO SCH (09:00)
[2023-02-19] MEDS ORDERED: NON-FORMULARY MEDICATION 1 EACH (Folic Acid/Vitamin B Comp W-C (Rena-Vite Tablet) 0.8 MG) PO SCH ×2 (09:00)
[2023-02-19] MEDS ORDERED: INSULIN DEGLUDEC 20 UNIT SQ SCH (09:00)
[2023-02-19] MEDS: BRIMONIDINE TARTRATE 0.2% 5 ML BOTTLE OP SCH (09:00)
[2023-02-19] MEDS ORDERED: CYANOCOBALAMIN (VITAMIN B-12) 1,000 MCG TABLET PO SCH (09:00)
[2023-02-19] MEDS: CILOSTAZOL 100 MG TAB PO SCH (09:28)
[2023-02-19] MEDS: DOXYCYCLINE 100MG+NS 250ML IV SCH (09:28)
[2023-02-19] MEDS: SUCRALFATE 1 GM TABLET PO SCH ×3 (09:28→18:18)
[2023-02-19] MEDS: BUSPIRONE HCL 5 MG TABLET PO SCH (09:29)
[2023-02-19] MEDS: GABAPENTIN 100 MG CAPSULE PO SCH ×2 (09:29→16:50)
[2023-02-19] MEDS: METOPROLOL TARTRATE 50 MG TAB PO SCH (09:29)
[2023-02-19] MEDS: ENOXAPARIN SODIUM 40 MG/0.4 ML SYRINGE SQ SCH (09:30)
[2023-02-19] MEDS: SEVELAMER HCL 800 MG TABLET PO SCH ×3 (09:32→16:46)
[2023-02-19] MEDS: FERROUS SULFATE 325 MG TABLET.DR PO SCH ×2 (09:32→16:46)
== END 2023-02-19 22:40 | disposition home or self-care (01) ==
LOC: EDH 16:23 → EDHIP 21:52 → INTOOBSV 21:52 → 2AH 22:38 → 3CH 02-18 17:15
PROVIDERS: ADMIT Hospitalist; ATTEND Hospitalist
DX: U07.1 COVID-19 (principal); A41.9 Sepsis, unspecified organism; I13.2 Hypertensive heart and chronic kidney disease with heart failure and with stage 5 chronic kidney disease, or end stage renal disease; I50.32 Chronic diastolic (congestive) heart failure; N18.6 End stage renal disease; E11.22 Type 2 diabetes mellitus with diabetic chronic kidney disease; D63.1 Anemia in chronic kidney disease; J96.01 Acute respiratory failure with hypoxia; E11.51 Type 2 diabetes mellitus with diabetic peripheral angiopathy without gangrene; E87.1 Hypo-osmolality and hyponatremia; E78.00 Pure hypercholesterolemia, unspecified; E87.5 Hyperkalemia; I48.91 Unspecified atrial fibrillation; Z90.710 Acquired absence of both cervix and uterus; Z79.899 Other long term (current) drug therapy; Z98.890 Other specified postprocedural states; Z79.4 Long term (current) use of insulin; Z90.49 Acquired absence of other specified parts of digestive tract; Z99.2 Dependence on renal dialysis
CPT/HCPCS: 96365; 96366 ×4; 96375; 99285; 82550; 84484; 80053 ×3; 82803; 83880 ×2; 85025 ×3; 87040 ×2; 87804 ×2; 83605; 36415 ×3; 87635; 71045; 93005; 36600; 94640 ×3; 94664; 84145 ×2; 96376; 96372 ×2; 96367; 96368; 83615 ×2; 83735; 85378 ×2; 82948 ×8; 93306; 93356; C9803; J0456 ×2; J1100 ×2; G0378 ×25; J3490 ×5; J1650 ×2; J1815 ×5; 90935